=== PATIENT | female | born 1950 | race Hispanic/Latino ===

== ENCOUNTER 2017-06-18 21:36 | Inpatient (IN) | payer MEDICARE ==
[~2017-06-18] VITALS: Ht 154.9 cm; Wt 94.3 kg
[~2017-06-18 21:36] MED LIST: CHOL100040 PO; FERS325 PO; FOLI1TAB85 PO; GLIM1TAB2 PO; LEVO250T2 PO; LINE600T PO
[2017-06-18] MEDS ORDERED: CEFTRIAXONE SODIUM 1 GM ONE (21:48)
[2017-06-18] MEDS ORDERED: SODIUM CHLORIDE 0.9% 1000ML 3,000 ML IV ONE (21:53)
[2017-06-18] MEDS ORDERED: ACETAMINOPHEN 325 MG TAB ONE (22:00)
[2017-06-18] MEDS ORDERED: ONDANSETRON HCL 4 MG/2 ML VIAL ONE (22:00)
[2017-06-18] MEDS ORDERED: KETOROLAC TROMETHAMINE 15MG/ML ONE (22:00)
[2017-06-18 22:27] LABS: APPEARANCE,URINE Cloudy (CLEAR); BILIRUBIN,URINE Negative (NEGATIVE); COLOR,URINE Yellow (YELLOW); GLUCOSE, URINE (UA) 500 mg/dL (NEGATIVE); KETONES,URINE Negative (NEGATIVE); LEUKOCYTE ESTERASE ,URINE Negative (NEGATIVE); NITRATE,URINE Negative (NEGATIVE); OCCULT BLOOD,URINE Moderate (NEGATIVE); PH,URINE 5.5 (5.0-8.0); PROTEIN,URINE >=1000 (NEGATIVE); UROBILINOGEN,URINE 0.2 mg/dL (0.2-1.0)
[2017-06-18 22:30] LABS: BASOPHILS % (AUTO) 0.8 % (0.0-5.0); EOSINOPHILS % (AUTO) 0.4 % (0.0-8.0); HEMATOCRIT 24.2 % (36-48); LYMPHOCYTES % (AUTO) 4.3 % (21.0-51.0); MEAN CORPUSCULAR HEMOGLOBIN 26.3 pg (27.0-33.0); MEAN CORPUSCULAR HGB CONC 31.7 g/dL (32.0-36.0); MONOCYTES % (AUTO) 5.8 % (3.0-13.0); NEUTROPHILS % (AUTO) 88.7 % (40.0-77.0); PLATELET COUNT (AUTO) 210 K/uL (130-400); RED BLOOD CELL COUNT(AUTO) 2.92 MIL/uL (4.00-5.50); RED CELL DISTRIBUTION WIDTH 19.8 % (11.0-15.5); WHITE BLOOD COUNT (AUTO) 25.5 K/uL (4.8-10.8)
[2017-06-18] MEDS ORDERED: AZITHROMYCIN 500MG+NS 250ML 250 ML IV ONE (22:31)
[2017-06-18 22:33] LABS: CARBON DIOXIDE 17 mmol/L (21-32); CHLORIDE 109 mmol/L (101-111); CREATININE 3.6 mg/dL (0.5-1.5); GLOMERULAR FILTR. RATE CALC 13 mL/min (>60); GLUCOSE,RANDOM 193 mg/dL (70-105); INR 0.98 (0.85-1.15); PARTIAL THROMBOPLASTIN TIME 26.5 SEC (26.3-35.5); POTASSIUM 4.1 mmol/L (3.5-5.1); PROTHROMBIN TIME 10.3 SEC (9.6-11.6); SODIUM SERUM 142 mmol/L (136-145); UREA NITROGEN, BLOOD 54 mg/dL (7-18)
[2017-06-18 22:37] LABS: BACTERIA,URINE Moderate /HPF (None Seen); MUCUS,URINE Many LPF (None Seen); RENAL EPITHELIAL CELLS,URINE Few /LPF (None Seen); SQUAMOUS EPITHELIAL CELL,UR Moderate /LPF (0-2)
[2017-06-18 22:45] LABS: ALANINE AMINOTRANSFERASE 20 U/L (12-78); ALBUMIN 2.6 g/dL (3.5-5.0); ASPARTATE AMINOTRANSFERASE 26 U/L (10-37); BILIRUBIN,TOTAL 0.3 mg/dL (0.2-1.0); CREATINE KINASE MB 1.8 ng/mL (0.5-3.6); CREATINE KINASE, TOTAL 159 U/L (21-232); MYOGLOBIN 177 ng/mL (10-92); TOTAL PROTEIN, SERUM 6.5 g/dL (6.0-8.3); TROPONIN I < 0.04 ng/mL (0.00-0.06)
[2017-06-19] VITALS (7 sets, daily range): BP systolic 133–147; BP diastolic 56–75
[2017-06-19] MEDS ORDERED: SODIUM CHLORIDE 0.9% 1000ML 1,000 ML IV SCH (01:22)
[2017-06-19] MEDS ORDERED: HYDRALAZINE HCL 20 MG/ML VIAL IV PRN (01:30)
[2017-06-19] MEDS ORDERED: DiphenhydrAMINE HCL 50 MG/ML VIAL IV PRN (01:30)
[2017-06-19] MEDS ORDERED: GUAIFENESIN-DM 200/20 MG 10 ML PO PRN (01:30)
[2017-06-19] MEDS ORDERED: ONDANSETRON HCL 4 MG/2 ML VIAL IV PRN (01:30)
[2017-06-19] MEDS ORDERED: CEFTRIAXONE 1GM/D5W 50ML 50 ML IV SCH ×2 (01:30→21:00)
[2017-06-19] MEDS ORDERED: GLUCAGON 1MG KIT 1 MG ML IM PRN (01:30)
[2017-06-19] MEDS ORDERED: LACTULOSE 20 GM/30 ML UDCUP PO PRN (01:30)
[2017-06-19] MEDS ORDERED: ACETAMINOPHEN 325 MG TAB PO PRN (01:30)
[2017-06-19] MEDS ORDERED: DEXTROSE 50%-WATER 50 ML DISP.SYRIN IV PRN (01:30)
[2017-06-19] MEDS ORDERED: NITROGLYCERIN 0.4 MG SL TAB SL PRN (01:30)
[2017-06-19] MEDS ORDERED: AZITHROMYCIN 500MG+NS 250ML 250 ML IV SCH (02:00)
[2017-06-19] MEDS: IPRATROPIUM/ALBUTEROL SULFATE 3 ML SOLUTION IH SCH ×6 (03:15→23:25)
[2017-06-19] MEDS: INSULIN HUMULIN R 100 UNIT/ML 3ML SQ SCH ×5 (05:53→20:53)
[2017-06-19 06:56] LABS: HEMATOCRIT 22.6 % (36-48); MEAN CORPUSCULAR HEMOGLOBIN 26.9 pg (27.0-33.0); MEAN CORPUSCULAR HGB CONC 31.7 g/dL (32.0-36.0); PLATELET COUNT (AUTO) 177 K/uL (130-400); RED BLOOD CELL COUNT(AUTO) 2.66 MIL/uL (4.00-5.50); RED CELL DISTRIBUTION WIDTH 20.3 % (11.0-15.5); WHITE BLOOD COUNT (AUTO) 29.5 K/uL (4.8-10.8)
[2017-06-19 07:17] LABS: CREATININE 3.7 mg/dL (0.5-1.5); POTASSIUM 3.9 mmol/L (3.5-5.1)
[2017-06-19 07:22] LABS: HEMOGLOBIN A1C 5.3 % (4.0-6.0)
[2017-06-19 07:26] LABS: BASOPHILS % (MANUAL) 1 % (0-2); LYMPHOCYTES % (MANUAL) 4 % (22-44); MAN.DIFF COMMENT-IMPRESSION MANUAL DIFFERENTIAL; MONOCYTES % (MANUAL) 2 % (2-9); PLATELET MORPHOLOGY COMMENT ADEQUATE; SEGMENTED NEUTROPHILS % 93 % (40-70)
[2017-06-19 07:40] LABS: B-TYPE NATRIURETIC PEPTIDE 917 pg/mL (0-100)
[2017-06-19] MEDS: FAMOTIDINE 20MG TAB 20 MG TAB PO SCH ×2 (07:53→20:37)
[2017-06-19] MEDS ORDERED: CEFTRIAXONE SODIUM 1 GM IVP SCH (11:15)
[2017-06-19] MEDS: CEFTRIAXONE SODIUM 1 GM IVP SCH (20:38)
[2017-06-19] MEDS: AZITHROMYCIN 500MG+NS 250ML 250 ML IV SCH (23:31)
[2017-06-20] MEDS: IPRATROPIUM/ALBUTEROL SULFATE 3 ML SOLUTION IH SCH ×6 (01:21→22:38)
[2017-06-20 04:24] LABS: BASOPHILS % (AUTO) 0.7 % (0.0-5.0); EOSINOPHILS % (AUTO) 1.5 % (0.0-8.0); LYMPHOCYTES % (AUTO) 8.9 % (21.0-51.0); MEAN CORPUSCULAR HEMOGLOBIN 26.9 pg (27.0-33.0); MEAN CORPUSCULAR HGB CONC 32.2 g/dL (32.0-36.0); MEAN CORPUSCULAR VOLUME 83.6 fL (79-99); MONOCYTES % (AUTO) 10.3 % (3.0-13.0); NEUTROPHILS % (AUTO) 78.6 % (40.0-77.0); PLATELET COUNT (AUTO) 149 K/uL (130-400); RED BLOOD CELL COUNT(AUTO) 2.33 MIL/uL (4.00-5.50); RED CELL DISTRIBUTION WIDTH 20.3 % (11.0-15.5); WHITE BLOOD COUNT (AUTO) 16.4 K/uL (4.8-10.8)
[2017-06-20 04:29] LABS: HEMATOCRIT 19.4 % (36-48)
[2017-06-20 04:34] LABS: CREATININE 3.9 mg/dL (0.5-1.5); POTASSIUM 3.4 mmol/L (3.5-5.1)
[2017-06-20 04:36] VITALS: BP 139/58
[2017-06-20 05:27] LABS: B-TYPE NATRIURETIC PEPTIDE 364 pg/mL (0-100)
[2017-06-20] MEDS: INSULIN HUMULIN R 100 UNIT/ML 3ML SQ SCH ×4 (06:26→20:41)
[2017-06-20 07:21] VITALS: BP 152/60
[2017-06-20] MEDS: FAMOTIDINE 20MG TAB 20 MG TAB PO SCH ×3 (09:00→20:31)
[2017-06-20 11:05] VITALS: BP 136/59
[2017-06-20] MEDS ORDERED: SODIUM CHLORIDE 0.9% 250 ML IV ONE (14:10)
[2017-06-20] MEDS: EPOETIN ALFA 10,000 UNIT/ML VIAL SQ SCH (14:47)
[2017-06-20 16:08] VITALS: BP 134/87
[2017-06-20] MEDS: FUROSEMIDE 10 MG/ML 4ML VIAL IV SCH (17:25)
[2017-06-20 20:15] VITALS: BP 156/68
[2017-06-20] MEDS ORDERED: WATER FOR INJECTION,STERILE 20 ML VIAL ONE (20:27)
[2017-06-20] MEDS: CEFTRIAXONE SODIUM 1 GM IVP SCH (20:31)
[2017-06-20] MEDS: AZITHROMYCIN 500MG+NS 250ML 250 ML IV SCH (21:40)
[2017-06-20 23:34] VITALS: BP 149/55
[2017-06-21] MEDS: ACETAMINOPHEN 325 MG TAB PO PRN ×2 (02:08→20:59)
[2017-06-21] MEDS: IPRATROPIUM/ALBUTEROL SULFATE 3 ML SOLUTION IH SCH ×6 (02:48→23:23)
[2017-06-21 04:00] VITALS: BP 135/47
[2017-06-21 04:29] LABS: BASOPHILS % (AUTO) 0.9 % (0.0-5.0); EOSINOPHILS % (AUTO) 3.3 % (0.0-8.0); LYMPHOCYTES % (AUTO) 14.1 % (21.0-51.0); MEAN CORPUSCULAR HEMOGLOBIN 27.6 pg (27.0-33.0); MEAN CORPUSCULAR HGB CONC 33.2 g/dL (32.0-36.0); MEAN CORPUSCULAR VOLUME 83.1 fL (79-99); NEUTROPHILS % (AUTO) 70.7 % (40.0-77.0); PLATELET COUNT (AUTO) 128 K/uL (130-400); RED BLOOD CELL COUNT(AUTO) 2.45 MIL/uL (4.00-5.50); RED CELL DISTRIBUTION WIDTH 19.5 % (11.0-15.5); WHITE BLOOD COUNT (AUTO) 11.8 K/uL (4.8-10.8)
[2017-06-21 04:34] LABS: CREATININE 4.2 mg/dL (0.5-1.5); POTASSIUM 3.5 mmol/L (3.5-5.1)
[2017-06-21 04:40] LABS: HEMATOCRIT 20.4 % (36-48)
[2017-06-21 04:51] LABS: B-TYPE NATRIURETIC PEPTIDE 349 pg/mL (0-100)
[2017-06-21] MEDS: INSULIN HUMULIN R 100 UNIT/ML 3ML SQ SCH ×4 (05:47→20:57)
[2017-06-21] MEDS ORDERED: SODIUM CHLORIDE 0.9% 250 ML IV ONE (05:59)
[2017-06-21 07:19] VITALS: BP 143/64
[2017-06-21] MEDS ORDERED: FUROSEMIDE 10 MG/ML 2ML VIAL IV ONE (07:45)
[2017-06-21] MEDS: FUROSEMIDE 10 MG/ML 4ML VIAL IV SCH ×2 (09:48→17:00)
[2017-06-21] MEDS: FAMOTIDINE 20MG TAB 20 MG TAB PO SCH ×2 (09:48→20:25)
[2017-06-21] MEDS: IRON SUCROSE COMPLEX 100 MG in SODIUM CHLORIDE 0.9% 50 ML IV SCH (09:48)
[2017-06-21 11:08] VITALS: BP 140/65
[2017-06-21] MEDS ORDERED: COMPOUND IV MISC 1 EACH IVSOLN MISC PRN (11:30)
[2017-06-21] MEDS: EPOETIN ALFA 10,000 UNIT/ML VIAL SQ SCH (12:30)
[2017-06-21 16:00] VITALS: BP 183/80
[2017-06-21] MEDS ORDERED: AMLO5TAB2 PO (17:29)
[2017-06-21 19:14] VITALS: BP 163/86
[2017-06-21] MEDS ORDERED: WATER FOR INJECTION,STERILE 20 ML VIAL ONE (20:00)
[2017-06-21] MEDS: CEFTRIAXONE SODIUM 1 GM IVP SCH (20:23)
[2017-06-21] MEDS: CARVEDILOL 6.25 MG TABLET PO SCH (20:24)
[2017-06-21] MEDS: AZITHROMYCIN 500MG+NS 250ML 250 ML IV SCH (22:04)
[2017-06-21 23:44] VITALS: BP 134/62
[2017-06-22] MEDS: IPRATROPIUM/ALBUTEROL SULFATE 3 ML SOLUTION IH SCH ×6 (02:59→22:04)
[2017-06-22 03:42] VITALS: BP 157/76
[2017-06-22 04:40] LABS: HEMATOCRIT 28.1 % (36-48); MEAN CORPUSCULAR HEMOGLOBIN 27.2 pg (27.0-33.0); MEAN CORPUSCULAR HGB CONC 33.2 g/dL (32.0-36.0); MEAN CORPUSCULAR VOLUME 82.1 fL (79-99); PLATELET COUNT (AUTO) 170 K/uL (130-400); RED BLOOD CELL COUNT(AUTO) 3.43 MIL/uL (4.00-5.50); RED CELL DISTRIBUTION WIDTH 18.8 % (11.0-15.5); WHITE BLOOD COUNT (AUTO) 14.2 K/uL (4.8-10.8)
[2017-06-22 05:05] LABS: CREATININE 4.2 mg/dL (0.5-1.5)
[2017-06-22] MEDS: INSULIN HUMULIN R 100 UNIT/ML 3ML SQ SCH ×4 (05:55→20:41)
[2017-06-22] MEDS: GLIMEPIRIDE 2 MG TABLET PO SCH (06:38)
[2017-06-22 07:00] VITALS: BP 157/72
[2017-06-22] MEDS: AMLODIPINE BESYLATE 5 MG TAB PO SCH (08:17)
[2017-06-22] MEDS: CARVEDILOL 6.25 MG TABLET PO SCH ×2 (08:17→20:40)
[2017-06-22] MEDS: IRON SUCROSE COMPLEX 100 MG in SODIUM CHLORIDE 0.9% 50 ML IV SCH (08:17)
[2017-06-22] MEDS: FOLIC ACID/VITAMIN B COMP W-C 1 MG CAPSULE PO SCH (08:17)
[2017-06-22] MEDS: FAMOTIDINE 20MG TAB 20 MG TAB PO SCH ×2 (08:17→20:40)
[2017-06-22] MEDS: FUROSEMIDE 10 MG/ML 4ML VIAL IV SCH (08:17)
[2017-06-22] MEDS: Cholecalciferol (Vitamin D3) 1,000 UNIT PO SCH (08:19)
[2017-06-22 11:30] VITALS: BP 150/70
[2017-06-22] MEDS: EPOETIN ALFA 10,000 UNIT/ML VIAL SQ SCH (11:58)
[2017-06-22 16:15] VITALS: BP 147/76
[2017-06-22 19:02] VITALS: BP 156/82
[2017-06-22] MEDS ORDERED: WATER FOR INJECTION,STERILE 20 ML VIAL ONE (20:09)
[2017-06-22] MEDS: CEFTRIAXONE SODIUM 1 GM IVP SCH (20:39)
[2017-06-22] MEDS: FUROSEMIDE 80 MG TABLET PO SCH (20:41)
[2017-06-22] MEDS: AZITHROMYCIN 500MG+NS 250ML 250 ML IV SCH (22:12)
[2017-06-22 23:04] VITALS: BP 150/73
[2017-06-23] MEDS: IPRATROPIUM/ALBUTEROL SULFATE 3 ML SOLUTION IH SCH ×6 (02:13→21:54)
[2017-06-23 03:12] VITALS: BP 120/55
[2017-06-23 04:29] LABS: MEAN CORPUSCULAR HEMOGLOBIN 28.9 pg (27.0-33.0); MEAN CORPUSCULAR HGB CONC 34.7 g/dL (32.0-36.0); MEAN CORPUSCULAR VOLUME 83.2 fL (79-99); PLATELET COUNT (AUTO) 156 K/uL (130-400); RED BLOOD CELL COUNT(AUTO) 3.12 MIL/uL (4.00-5.50); RED CELL DISTRIBUTION WIDTH 18.5 % (11.0-15.5)
[2017-06-23 04:37] LABS: CREATININE 4.3 mg/dL (0.5-1.5); POTASSIUM 3.5 mmol/L (3.5-5.1)
[2017-06-23] MEDS: INSULIN HUMULIN R 100 UNIT/ML 3ML SQ SCH ×4 (06:25→21:00)
[2017-06-23] MEDS: GLIMEPIRIDE 2 MG TABLET PO SCH ×2 (06:46→07:30)
[2017-06-23] MEDS: FOLIC ACID/VITAMIN B COMP W-C 1 MG CAPSULE PO SCH (07:20)
[2017-06-23] MEDS: FUROSEMIDE 80 MG TABLET PO SCH ×2 (07:21→21:12)
[2017-06-23] MEDS: FAMOTIDINE 20MG TAB 20 MG TAB PO SCH ×2 (07:21→21:12)
[2017-06-23] MEDS: CARVEDILOL 6.25 MG TABLET PO SCH ×2 (07:21→21:12)
[2017-06-23] MEDS: AMLODIPINE BESYLATE 5 MG TAB PO SCH (07:21)
[2017-06-23] MEDS: IRON SUCROSE COMPLEX 100 MG in SODIUM CHLORIDE 0.9% 50 ML IV SCH (07:21)
[2017-06-23] MEDS: Cholecalciferol (Vitamin D3) 1,000 UNIT PO SCH (07:21)
[2017-06-23] MEDS: EPOETIN ALFA 10,000 UNIT/ML VIAL SQ SCH (07:27)
[2017-06-23 07:42] VITALS: BP 148/71
[2017-06-23 11:09] VITALS: BP 141/69
[2017-06-23 16:00] VITALS: BP 143/82
[2017-06-23] MEDS ORDERED: WATER FOR INJECTION,STERILE 20 ML VIAL ONE (20:02)
[2017-06-23 20:12] VITALS: BP 175/74
[2017-06-23] MEDS ORDERED: CEFEPIME 1GM+NS 50ML 50 ML IV SCH (21:00)
[2017-06-23] MEDS: CEFEPIME HCL 1 GM VIAL IVP SCH (21:10)
[2017-06-23] MEDS: AZITHROMYCIN 500MG+NS 250ML 250 ML IV SCH (21:56)
[2017-06-23 23:28] VITALS: BP 138/58
[2017-06-24] MEDS: IPRATROPIUM/ALBUTEROL SULFATE 3 ML SOLUTION IH SCH ×6 (02:21→21:37)
[2017-06-24 03:11] VITALS: BP 133/56
[2017-06-24 04:13] LABS: HEMATOCRIT 27.1 % (36-48); MEAN CORPUSCULAR HEMOGLOBIN 28.4 pg (27.0-33.0); MEAN CORPUSCULAR HGB CONC 34.3 g/dL (32.0-36.0); MEAN CORPUSCULAR VOLUME 82.8 fL (79-99); NUCLEATED RED BLOOD CELLS 0.1 % (0.0-0.19); PLATELET COUNT (AUTO) 186 K/uL (130-400); RED BLOOD CELL COUNT(AUTO) 3.27 MIL/uL (4.00-5.50); RED CELL DISTRIBUTION WIDTH 18.1 % (11.0-15.5); WHITE BLOOD COUNT (AUTO) 10.6 K/uL (4.8-10.8)
[2017-06-24 04:34] LABS: CREATININE 4.4 mg/dL (0.5-1.5); POTASSIUM 3.4 mmol/L (3.5-5.1)
[2017-06-24] MEDS: INSULIN HUMULIN R 100 UNIT/ML 3ML SQ SCH ×4 (06:59→21:05)
[2017-06-24] MEDS: GLIMEPIRIDE 2 MG TABLET PO SCH (06:59)
[2017-06-24 07:37] VITALS: BP 148/67
[2017-06-24] MEDS: Cholecalciferol (Vitamin D3) 1,000 UNIT PO SCH (09:00)
[2017-06-24] MEDS: FOLIC ACID/VITAMIN B COMP W-C 1 MG CAPSULE PO SCH (09:02)
[2017-06-24] MEDS: AMLODIPINE BESYLATE 5 MG TAB PO SCH (09:02)
[2017-06-24] MEDS: FAMOTIDINE 20MG TAB 20 MG TAB PO SCH ×2 (09:03→21:12)
[2017-06-24] MEDS: FUROSEMIDE 80 MG TABLET PO SCH ×2 (09:03→21:12)
[2017-06-24] MEDS: CARVEDILOL 6.25 MG TABLET PO SCH ×2 (09:03→21:12)
[2017-06-24] MEDS: IRON SUCROSE COMPLEX 100 MG in SODIUM CHLORIDE 0.9% 50 ML IV SCH (10:07)
[2017-06-24 11:30] VITALS: BP 130/60
[2017-06-24] MEDS: EPOETIN ALFA 10,000 UNIT/ML VIAL SQ SCH (12:39)
[2017-06-24] MEDS ORDERED: POTASSIUM CHLORIDE 20 MEQ ERTAB PO SCH (15:15)
[2017-06-24 16:15] VITALS: BP 133/53
[2017-06-24 19:29] VITALS: BP 156/68
[2017-06-24] MEDS ORDERED: WATER FOR INJECTION,STERILE 5 ML VIAL ONE (20:54)
[2017-06-24] MEDS: CEFEPIME HCL 1 GM VIAL IVP SCH (21:11)
[2017-06-24] MEDS: AZITHROMYCIN 500MG+NS 250ML 250 ML IV SCH (21:12)
[2017-06-24] MEDS ORDERED: SODIUM CHLORIDE 0.9% 500ML 500 ML IV ONE (21:23)
[2017-06-24 23:27] VITALS: BP 136/59
[2017-06-25] MEDS: ACETAMINOPHEN 325 MG TAB PO PRN (00:50)
[2017-06-25] MEDS: IPRATROPIUM/ALBUTEROL SULFATE 3 ML SOLUTION IH SCH ×6 (01:53→21:43)
[2017-06-25 03:48] LABS: HEMATOCRIT 27.3 % (36-48); MEAN CORPUSCULAR HEMOGLOBIN 28.3 pg (27.0-33.0); MEAN CORPUSCULAR HGB CONC 33.8 g/dL (32.0-36.0); MEAN CORPUSCULAR VOLUME 83.5 fL (79-99); PLATELET COUNT (AUTO) 190 K/uL (130-400); RED BLOOD CELL COUNT(AUTO) 3.27 MIL/uL (4.00-5.50); RED CELL DISTRIBUTION WIDTH 18.6 % (11.0-15.5); WHITE BLOOD COUNT (AUTO) 10.9 K/uL (4.8-10.8)
[2017-06-25 03:57] VITALS: BP 157/63
[2017-06-25 03:58] LABS: CREATININE 4.6 mg/dL (0.5-1.5); POTASSIUM 3.4 mmol/L (3.5-5.1)
[2017-06-25 04:09] LABS: EOSINOPHILS % (MANUAL) 4 % (1-6); LYMPHOCYTES % (MANUAL) 24 % (22-44); MAN.DIFF COMMENT-IMPRESSION MANUAL DIFFERENTIAL; MONOCYTES % (MANUAL) 4 % (2-9); SEGMENTED NEUTROPHILS % 68 % (40-70)
[2017-06-25 04:10] LABS: PLATELET MORPHOLOGY COMMENT ADEQUATE
[2017-06-25] MEDS: INSULIN HUMULIN R 100 UNIT/ML 3ML SQ SCH ×4 (06:28→22:05)
[2017-06-25] MEDS: GLIMEPIRIDE 2 MG TABLET PO SCH (06:50)
[2017-06-25 07:00] VITALS: BP 145/64
[2017-06-25] MEDS ORDERED: POTASSIUM CHLORIDE 20 MEQ ERTAB PO SCH (08:00)
[2017-06-25] MEDS: FOLIC ACID/VITAMIN B COMP W-C 1 MG CAPSULE PO SCH (08:54)
[2017-06-25] MEDS: FUROSEMIDE 80 MG TABLET PO SCH ×2 (08:54→22:27)
[2017-06-25] MEDS: AMLODIPINE BESYLATE 5 MG TAB PO SCH (08:54)
[2017-06-25] MEDS: CARVEDILOL 6.25 MG TABLET PO SCH ×2 (08:55→22:28)
[2017-06-25] MEDS: FAMOTIDINE 20MG TAB 20 MG TAB PO SCH ×2 (08:55→22:27)
[2017-06-25] MEDS: Cholecalciferol (Vitamin D3) 1,000 UNIT PO SCH (08:55)
[2017-06-25] MEDS: IRON SUCROSE COMPLEX 100 MG in SODIUM CHLORIDE 0.9% 50 ML IV SCH (09:12)
[2017-06-25 11:00] VITALS: BP 155/65
[2017-06-25] MEDS: EPOETIN ALFA 10,000 UNIT/ML VIAL SQ SCH (12:18)
[2017-06-25 16:00] VITALS: BP 144/68
[2017-06-25 19:42] VITALS: BP 154/79
[2017-06-25] MEDS ORDERED: WATER FOR INJECTION,STERILE 5 ML VIAL ONE (21:50)
[2017-06-25] MEDS: CEFEPIME HCL 1 GM VIAL IVP SCH (22:27)
[2017-06-25] MEDS: AZITHROMYCIN 500MG+NS 250ML 250 ML IV SCH (22:28)
[2017-06-25 23:43] VITALS: BP 145/73
[2017-06-26] MEDS: IPRATROPIUM/ALBUTEROL SULFATE 3 ML SOLUTION IH SCH ×3 (02:53→11:59)
[2017-06-26 03:44] VITALS: BP 140/70
[2017-06-26 05:09] LABS: HEMATOCRIT 28.8 % (36-48); MEAN CORPUSCULAR HEMOGLOBIN 27.6 pg (27.0-33.0); MEAN CORPUSCULAR HGB CONC 33.2 g/dL (32.0-36.0); NUCLEATED RED BLOOD CELLS 0.2 % (0.0-0.19); PLATELET COUNT (AUTO) 213 K/uL (130-400); RED BLOOD CELL COUNT(AUTO) 3.47 MIL/uL (4.00-5.50); RED CELL DISTRIBUTION WIDTH 18.7 % (11.0-15.5); WHITE BLOOD COUNT (AUTO) 12.1 K/uL (4.8-10.8)
[2017-06-26 05:29] LABS: CREATININE 4.5 mg/dL (0.5-1.5); POTASSIUM 3.3 mmol/L (3.5-5.1)
[2017-06-26 05:50] LABS: EOSINOPHILS % (MANUAL) 5 % (1-6); LYMPHOCYTES % (MANUAL) 18 % (22-44); MAN.DIFF COMMENT-IMPRESSION MANUAL DIFFERENTIAL; MONOCYTES % (MANUAL) 4 % (2-9); PLATELET MORPHOLOGY COMMENT ADEQUATE; SEGMENTED NEUTROPHILS % 73 % (40-70)
[2017-06-26] MEDS: INSULIN HUMULIN R 100 UNIT/ML 3ML SQ SCH (05:57)
[2017-06-26] MEDS: GLIMEPIRIDE 2 MG TABLET PO SCH ×2 (06:30→06:32)
[2017-06-26 07:00] VITALS: BP 144/58
[2017-06-26] MEDS ORDERED: AMOX-426 PO (07:42)
[2017-06-26] MEDS ORDERED: FURO80TA3 PO (07:42)
[2017-06-26] MEDS ORDERED: CARV6.2579 PO (07:42)
[2017-06-26 10:34] VITALS: BP 144/58
[2017-06-26] MEDS: FAMOTIDINE 20MG TAB 20 MG TAB PO SCH (10:34)
[2017-06-26] MEDS: CARVEDILOL 6.25 MG TABLET PO SCH (10:34)
[2017-06-26] MEDS: IRON SUCROSE COMPLEX 100 MG in SODIUM CHLORIDE 0.9% 50 ML IV SCH (10:34)
[2017-06-26] MEDS: AMLODIPINE BESYLATE 5 MG TAB PO SCH (10:34)
[2017-06-26] MEDS: FUROSEMIDE 80 MG TABLET PO SCH (10:34)
[2017-06-26] MEDS: FOLIC ACID/VITAMIN B COMP W-C 1 MG CAPSULE PO SCH (10:34)
== END 2017-06-26 14:15 | disposition home or self-care (01) | DRG 871 ==
LOC: EDH 21:36 → EDHIP 06-19 01:00 → 2DH 06-19 01:36
PROVIDERS: ADMIT Family Medicine; ATTEND Family Medicine
PROC: 30233N1 Transfusion of Nonautologous Red Blood Cells into Peripheral Vein, Percutaneous Approach (ICD-10-PCS; principal; 2017-06-26)
DX: A41.9 Sepsis, unspecified organism (principal); J18.9 Pneumonia, unspecified organism; J81.0 Acute pulmonary edema; N17.9 Acute kidney failure, unspecified; N39.0 Urinary tract infection, site not specified; E11.22 Type 2 diabetes mellitus with diabetic chronic kidney disease; N18.9 Chronic kidney disease, unspecified; D63.1 Anemia in chronic kidney disease; I89.0 Lymphedema, not elsewhere classified; I12.9 Hypertensive chronic kidney disease with stage 1 through stage 4 chronic kidney disease, or unspecified chronic kidney disease; E11.21 Type 2 diabetes mellitus with diabetic nephropathy; E11.51 Type 2 diabetes mellitus with diabetic peripheral angiopathy without gangrene; E87.70 Fluid overload, unspecified; B96.20 Unspecified Escherichia coli [E. coli] as the cause of diseases classified elsewhere; R09.89 Other specified symptoms and signs involving the circulatory and respiratory systems; M14.679 Charcot's joint, unspecified ankle and foot; Z88.8 Allergy status to other drugs, medicaments and biological substances; Z90.710 Acquired absence of both cervix and uterus; Z90.49 Acquired absence of other specified parts of digestive tract; Z99.2 Dependence on renal dialysis; Z83.3 Family history of diabetes mellitus; Z82.49 Family history of ischemic heart disease and other diseases of the circulatory system
CPT/HCPCS: 36415; 71010; 71020; 71250; 80048; 80053; 81001; 82550; 82553; 82948; 83036; 83605; 83874; 83880; 84484; 85025; 85027; 85610; 85730; 86850; 86900; 86901; 86922; 87040; 87088; 87186; 87804; 93005; 93306; 94640; 94664; 99291; A4218; J0456; J0692; J0696; J0885; J1756; J1815; J1885; J1940; J2405; J7030; J7040; P9016

== ENCOUNTER 2017-06-30 12:32 | Inpatient (IN) | payer MEDICARE, OTHER ==
[~2017-06-30] VITALS: Ht 162.6 cm; Wt 87.1 kg
[~2017-06-30 12:32] MED LIST changes: +AMLO5TAB2 PO; +AMOX-426 PO; +CARV6.2579 PO; +FURO80TA3 PO; -LEVO250T2 PO; -LINE600T PO
[2017-06-30 13:51] LABS: BASOPHILS % (AUTO) 0.8 % (0.0-5.0); EOSINOPHILS % (AUTO) 3.4 % (0.0-8.0); HEMATOCRIT 34.2 % (36-48); LYMPHOCYTES % (AUTO) 8.8 % (21.0-51.0); MEAN CORPUSCULAR HGB CONC 32.3 g/dL (32.0-36.0); MEAN CORPUSCULAR VOLUME 83.7 fL (79-99); MONOCYTES % (AUTO) 8.7 % (3.0-13.0); NEUTROPHILS % (AUTO) 78.3 % (40.0-77.0); PLATELET COUNT (AUTO) 222 K/uL (130-400); RED BLOOD CELL COUNT(AUTO) 4.09 MIL/uL (4.00-5.50); RED CELL DISTRIBUTION WIDTH 18.3 % (11.0-15.5); WHITE BLOOD COUNT (AUTO) 13.9 K/uL (4.8-10.8)
[2017-06-30 14:00] LABS: CREATININE 4.5 mg/dL (0.5-1.5); POTASSIUM 3.4 mmol/L (3.5-5.1)
[2017-06-30 14:06] LABS: ALBUMIN 2.3 g/dL (3.5-5.0); BILIRUBIN,TOTAL 0.3 mg/dL (0.2-1.0); TOTAL PROTEIN, SERUM 7.4 g/dL (6.0-8.3)
[2017-06-30 14:31] LABS: INR 1.02 (0.85-1.15); PARTIAL THROMBOPLASTIN TIME 30.3 SEC (26.3-35.5); PROTHROMBIN TIME 10.7 SEC (9.6-11.6)
[2017-06-30] MEDS ORDERED: HEPARIN SODIUM 1000UNIT/ML 10ML VIAL ONE (15:23)
[2017-06-30 17:15] VITALS: BP 146/71
[2017-06-30 17:45] VITALS: BP 158/66
[2017-06-30] MEDS ORDERED: ONDANSETRON HCL 4 MG/2 ML VIAL IVP PRN (17:45)
[2017-06-30] MEDS ORDERED: KETO5DRO39 OU (18:03)
[2017-06-30] MEDS ORDERED: DOXY100C2 PO (18:03)
[2017-06-30 18:10] LABS: HEMATOCRIT 31.6 % (36-48)
[2017-06-30 18:22] LABS: HEMOGLOBIN A1C 5.6 % (4.0-6.0)
[2017-06-30 18:26] LABS: ALBUMIN 2.1 g/dL (3.5-5.0); CREATININE 4.5 mg/dL (0.5-1.5)
[2017-06-30 19:00] VITALS: BP 153/69
[2017-06-30] MEDS ORDERED: 0.9% SODIUM CHLORIDE 250 ML IV BAG IV PRN (19:15)
[2017-06-30] MEDS ORDERED: ALBUMIN (HUMAN) 25% 100 ML IV PRN (19:15)
[2017-06-30] MEDS ORDERED: SODIUM CHLORIDE 0.9% 1000ML 1,000 ML IV PRN (19:15)
[2017-06-30] MEDS ORDERED: HEPARIN SODIUM 5000UNIT/ML 1ML VIAL IJ PRN (19:15)
[2017-07-01] VITALS (8 sets, daily range): BP systolic 104–164; BP diastolic 52–78
[2017-07-01 05:12] LABS: HEMATOCRIT 32.9 % (36-48); MEAN CORPUSCULAR HEMOGLOBIN 27.8 pg (27.0-33.0); MEAN CORPUSCULAR HGB CONC 33.3 g/dL (32.0-36.0); MEAN CORPUSCULAR VOLUME 83.3 fL (79-99); PLATELET COUNT (AUTO) 211 K/uL (130-400); RED BLOOD CELL COUNT(AUTO) 3.95 MIL/uL (4.00-5.50)
[2017-07-01 05:23] LABS: PHOSPHORUS 4.1 mg/dL (2.5-4.9)
[2017-07-01 05:30] LABS: BAND NEUTROPHILS % (MANUAL) 5 % (0-2); EOSINOPHILS % (MANUAL) 4 % (1-6); LYMPHOCYTES % (MANUAL) 9 % (22-44); MAN.DIFF COMMENT-IMPRESSION MANUAL DIFFERENTIAL; MONOCYTES % (MANUAL) 10 % (2-9); PLATELET MORPHOLOGY COMMENT ADEQUATE; SEGMENTED NEUTROPHILS % 72 % (40-70)
[2017-07-01 05:51] LABS: POTASSIUM 2.9 mmol/L (3.5-5.1)
[2017-07-01] MEDS ORDERED: PANTOPRAZOLE 40 MG/VIAL IVP SCH (09:00)
[2017-07-01] MEDS: KETOROLAC TROMETHAMINE OPTH 0.5% 5ML DROPS OU SCH ×2 (15:57→21:00)
[2017-07-01] MEDS: INSULIN HUMULIN R 100 UNIT/ML 3ML SQ SCH (21:00)
[2017-07-01] MEDS: AMOXICILLIN/POTASSIUM CLAV 500-125 TABLET PO SCH (21:09)
[2017-07-01] MEDS: DOXYCYCLINE HYCLATE 100 MG TABLET PO SCH (21:09)
[2017-07-01] MEDS: CARVEDILOL 6.25 MG TABLET PO SCH (21:09)
[2017-07-02 03:00] VITALS: BP 118/48
[2017-07-02 06:10] LABS: HEMATOCRIT 31.3 % (36-48); MEAN CORPUSCULAR HEMOGLOBIN 27.3 pg (27.0-33.0); MEAN CORPUSCULAR HGB CONC 32.7 g/dL (32.0-36.0); MEAN CORPUSCULAR VOLUME 83.4 fL (79-99); PLATELET COUNT (AUTO) 163 K/uL (130-400); RED BLOOD CELL COUNT(AUTO) 3.75 MIL/uL (4.00-5.50); RED CELL DISTRIBUTION WIDTH 17.9 % (11.0-15.5); WHITE BLOOD COUNT (AUTO) 11.5 K/uL (4.8-10.8)
[2017-07-02 06:26] LABS: CREATININE 3.1 mg/dL (0.5-1.5); POTASSIUM 3.1 mmol/L (3.5-5.1)
[2017-07-02 06:33] LABS: EOSINOPHILS % (MANUAL) 5 % (1-6); LYMPHOCYTES % (MANUAL) 27 % (22-44); MAN.DIFF COMMENT-IMPRESSION MANUAL DIFFERENTIAL; MONOCYTES % (MANUAL) 7 % (2-9); SEGMENTED NEUTROPHILS % 61 % (40-70)
[2017-07-02 06:34] LABS: PLATELET MORPHOLOGY COMMENT ADEQUATE
[2017-07-02] MEDS: INSULIN HUMULIN R 100 UNIT/ML 3ML SQ SCH ×4 (07:30→21:00)
[2017-07-02 08:00] VITALS: BP 137/61
[2017-07-02] MEDS: AMOXICILLIN/POTASSIUM CLAV 500-125 TABLET PO SCH ×2 (09:00→21:21)
[2017-07-02] MEDS: CARVEDILOL 6.25 MG TABLET PO SCH ×2 (09:00→21:22)
[2017-07-02 09:13] LABS: HEPATITIS Bs ANTIGEN SCREEN P Negative (Negative)
[2017-07-02] MEDS: VITAMIN B COMPLEX 1 CAPSULE PO SCH (10:48)
[2017-07-02] MEDS: KETOROLAC TROMETHAMINE OPTH 0.5% 5ML DROPS OU SCH ×3 (10:48→21:20)
[2017-07-02] MEDS: PANTOPRAZOLE SODIUM 40 MG TABLET.DR PO SCH (10:48)
[2017-07-02 12:00] VITALS: BP 160/63
[2017-07-02 16:00] VITALS: BP 120/56
[2017-07-02] MEDS: FERROUS SULFATE 325 MG TABLET.DR PO SCH (16:31)
[2017-07-02] MEDS: DOXYCYCLINE HYCLATE 100 MG TABLET PO SCH ×2 (16:31→21:21)
[2017-07-02 21:00] VITALS: BP 119/60
[2017-07-02 23:59] VITALS: BP 115/60
[2017-07-03] MEDS: ACETAMINOPHEN 325 MG TAB PO PRN ×2 (00:58→22:34)
[2017-07-03 03:27] VITALS: BP 120/58
[2017-07-03 05:35] LABS: HEMATOCRIT 31.5 % (36-48); MEAN CORPUSCULAR HEMOGLOBIN 27.3 pg (27.0-33.0); MEAN CORPUSCULAR HGB CONC 32.4 g/dL (32.0-36.0); MEAN CORPUSCULAR VOLUME 84.2 fL (79-99); PLATELET COUNT (AUTO) 156 K/uL (130-400); RED BLOOD CELL COUNT(AUTO) 3.74 MIL/uL (4.00-5.50); RED CELL DISTRIBUTION WIDTH 17.8 % (11.0-15.5); WHITE BLOOD COUNT (AUTO) 11.5 K/uL (4.8-10.8)
[2017-07-03 05:48] LABS: CREATININE 3.9 mg/dL (0.5-1.5); PHOSPHORUS 5.2 mg/dL (2.5-4.9); POTASSIUM 3.1 mmol/L (3.5-5.1)
[2017-07-03] MEDS: INSULIN HUMULIN R 100 UNIT/ML 3ML SQ SCH ×4 (07:30→20:25)
[2017-07-03 08:00] VITALS: BP 139/62
[2017-07-03] MEDS: FERROUS SULFATE 325 MG TABLET.DR PO SCH (08:00)
[2017-07-03] MEDS: DOXYCYCLINE HYCLATE 100 MG TABLET PO SCH (09:00)
[2017-07-03] MEDS: AMOXICILLIN/POTASSIUM CLAV 500-125 TABLET PO SCH (09:00)
[2017-07-03] MEDS: CARVEDILOL 6.25 MG TABLET PO SCH ×2 (09:14→20:23)
[2017-07-03] MEDS: PANTOPRAZOLE SODIUM 40 MG TABLET.DR PO SCH (09:14)
[2017-07-03] MEDS: VITAMIN B COMPLEX 1 CAPSULE PO SCH (09:15)
[2017-07-03] MEDS: KETOROLAC TROMETHAMINE OPTH 0.5% 5ML DROPS OU SCH ×3 (09:25→20:24)
[2017-07-03 12:00] VITALS: BP 165/75
[2017-07-03 15:52] VITALS: BP 145/67
[2017-07-03] MEDS ORDERED: RENAL DOSE IV SCH (17:15)
[2017-07-03] MEDS ORDERED: VANCOMYCIN PROTOCOL PER PHARMACY IV SCH (17:45)
[2017-07-03] MEDS ORDERED: COMPOUND IV REFRIGERATED 1 EACH IVSOLN MISC PRN (18:00)
[2017-07-03] MEDS: VANCOMYCIN 1.5 GM in N.S. 250 ML IV SCH (18:19)
[2017-07-03 19:00] VITALS: BP 142/64
[2017-07-03] MEDS: ZOSYN 3.375GM+NS 50ML 50 ML IV SCH (20:22)
[2017-07-04] VITALS (7 sets, daily range): BP systolic 113–167; BP diastolic 57–76
[2017-07-04] MEDS ORDERED: HYDROXYZINE HCL 25 MG TABLET ONE (00:09)
[2017-07-04] MEDS ORDERED: HYDROXYZINE HCL 25 MG TABLET PO PRN (00:15)
[2017-07-04] MEDS: INSULIN HUMULIN R 100 UNIT/ML 3ML SQ SCH ×4 (05:52→21:00)
[2017-07-04 05:56] LABS: HEMATOCRIT 30.7 % (36-48); MEAN CORPUSCULAR HEMOGLOBIN 27.6 pg (27.0-33.0); MEAN CORPUSCULAR HGB CONC 32.8 g/dL (32.0-36.0); MEAN CORPUSCULAR VOLUME 84.1 fL (79-99); PLATELET COUNT (AUTO) 147 K/uL (130-400); RED BLOOD CELL COUNT(AUTO) 3.65 MIL/uL (4.00-5.50); RED CELL DISTRIBUTION WIDTH 18.3 % (11.0-15.5); WHITE BLOOD COUNT (AUTO) 9.8 K/uL (4.8-10.8)
[2017-07-04 06:09] LABS: CREATININE 4.3 mg/dL (0.5-1.5); MAGNESIUM 1.6 mg/dL (1.80-2.40); POTASSIUM 3.1 mmol/L (3.5-5.1)
[2017-07-04] MEDS: TRAMADOL HCL 50 MG TABLET PO PRN (08:48)
[2017-07-04] MEDS: CARVEDILOL 6.25 MG TABLET PO SCH ×2 (10:49→21:16)
[2017-07-04] MEDS: VITAMIN B COMPLEX 1 CAPSULE PO SCH (10:49)
[2017-07-04] MEDS: FERROUS SULFATE 325 MG TABLET.DR PO SCH (10:50)
[2017-07-04] MEDS: ZOSYN 3.375GM+NS 50ML 50 ML IV SCH ×2 (10:50→21:15)
[2017-07-04] MEDS: KETOROLAC TROMETHAMINE OPTH 0.5% 5ML DROPS OU SCH ×3 (10:50→21:16)
[2017-07-04] MEDS: PANTOPRAZOLE SODIUM 40 MG TABLET.DR PO SCH (10:50)
[2017-07-04] MEDS ORDERED: NEOMY SULF/BACITRAC ZN/POLY OINT 30GM TUBE TP SCH (17:00)
[2017-07-04] MEDS: CALCIUM ACETATE 667 MG CAPSULE PO SCH (18:24)
[2017-07-04] MEDS: VANCOMYCIN 1.5 GM in N.S. 250 ML IV SCH (18:24)
[2017-07-05 04:00] VITALS: BP 136/61
[2017-07-05] MEDS: INSULIN HUMULIN R 100 UNIT/ML 3ML SQ SCH ×4 (05:54→21:00)
[2017-07-05 05:59] LABS: HEMATOCRIT 30.1 % (36-48); MEAN CORPUSCULAR HEMOGLOBIN 28.1 pg (27.0-33.0); MEAN CORPUSCULAR VOLUME 85.2 fL (79-99); PLATELET COUNT (AUTO) 126 K/uL (130-400); RED BLOOD CELL COUNT(AUTO) 3.54 MIL/uL (4.00-5.50); RED CELL DISTRIBUTION WIDTH 17.6 % (11.0-15.5); WHITE BLOOD COUNT (AUTO) 9.4 K/uL (4.8-10.8)
[2017-07-05 06:09] LABS: CREATININE 3.1 mg/dL (0.5-1.5); PHOSPHORUS 4.4 mg/dL (2.5-4.9); POTASSIUM 3.5 mmol/L (3.5-5.1)
[2017-07-05 06:10] LABS: BASOPHILS % (MANUAL) 2 % (0-2); EOSINOPHILS % (MANUAL) 6 % (1-6); LYMPHOCYTES % (MANUAL) 21 % (22-44); MAN.DIFF COMMENT-IMPRESSION MANUAL DIFFERENTIAL; MONOCYTES % (MANUAL) 5 % (2-9); PLATELET MORPHOLOGY COMMENT SLIGHTLY DECREASED; SEGMENTED NEUTROPHILS % 66 % (40-70)
[2017-07-05 07:06] VITALS: BP 155/61
[2017-07-05] MEDS: ZOSYN 3.375GM+NS 50ML 50 ML IV SCH ×2 (09:53→21:58)
[2017-07-05] MEDS: VITAMIN B COMPLEX 1 CAPSULE PO SCH (09:54)
[2017-07-05] MEDS: CALCIUM ACETATE 667 MG CAPSULE PO SCH ×3 (09:54→17:00)
[2017-07-05] MEDS: CARVEDILOL 6.25 MG TABLET PO SCH ×2 (09:55→21:59)
[2017-07-05] MEDS: KETOROLAC TROMETHAMINE OPTH 0.5% 5ML DROPS OU SCH ×3 (09:55→22:03)
[2017-07-05] MEDS: FERROUS SULFATE 325 MG TABLET.DR PO SCH (09:55)
[2017-07-05] MEDS: PANTOPRAZOLE SODIUM 40 MG TABLET.DR PO SCH (09:57)
[2017-07-05 11:00] VITALS: BP 156/62
[2017-07-05] MEDS: SODIUM CHLORIDE 0.9% 1000ML 1,000 ML IV SCH ×2 (13:05→22:41)
[2017-07-05] MEDS ORDERED: DiphenhydrAMINE HCL 50 MG/ML VIAL IVP PRN (13:15)
[2017-07-05 14:22] LABS: INR 1.03 (0.85-1.15); PARTIAL THROMBOPLASTIN TIME 27.3 SEC (26.3-35.5); PROTHROMBIN TIME 10.8 SEC (9.6-11.6)
[2017-07-05 15:00] VITALS: BP 174/67
[2017-07-05] MEDS: VANCOMYCIN 1.5 GM in N.S. 250 ML IV SCH (17:56)
[2017-07-05 18:24] VITALS: BP 168/72
[2017-07-05] MEDS: VANCOMYCIN 1GM+NS 250ML 250 ML IV SCH (19:47)
[2017-07-05 19:59] VITALS: BP 166/70
[2017-07-05] MEDS: LACTULOSE 20 GM/30 ML UDCUP PO SCH (21:59)
[2017-07-06] VITALS (14 sets, daily range): BP systolic 108–190; BP diastolic 54–82
[2017-07-06] MEDS: SODIUM CHLORIDE 0.9% 1000ML 1,000 ML IV SCH ×2 (04:18→09:05)
[2017-07-06] MEDS: INSULIN HUMULIN R 100 UNIT/ML 3ML SQ SCH ×4 (05:46→20:54)
[2017-07-06 06:04] LABS: HEMATOCRIT 32.1 % (36-48); MEAN CORPUSCULAR HEMOGLOBIN 27.2 pg (27.0-33.0); MEAN CORPUSCULAR VOLUME 84.9 fL (79-99); PLATELET COUNT (AUTO) 129 K/uL (130-400); RED BLOOD CELL COUNT(AUTO) 3.78 MIL/uL (4.00-5.50); RED CELL DISTRIBUTION WIDTH 17.4 % (11.0-15.5); WHITE BLOOD COUNT (AUTO) 9.7 K/uL (4.8-10.8)
[2017-07-06 06:17] LABS: CREATININE 3.6 mg/dL (0.5-1.5); POTASSIUM 3.4 mmol/L (3.5-5.1)
[2017-07-06] MEDS ORDERED: ALBUMIN (HUMAN) 25% 100 ML IV PRN (06:30)
[2017-07-06] MEDS ORDERED: SODIUM CHLORIDE 0.9% 1000ML 1,000 ML IV PRN (06:30)
[2017-07-06] MEDS ORDERED: 0.9% SODIUM CHLORIDE 250 ML IV BAG IV PRN (06:30)
[2017-07-06] MEDS ORDERED: HEPARIN SODIUM 5000UNIT/ML 1ML VIAL IJ PRN (06:30)
[2017-07-06 06:56] LABS: CREATINE KINASE MB < 0.5 ng/mL (0.5-3.6); CREATINE KINASE, TOTAL 26 U/L (21-232); MYOGLOBIN 108 ng/mL (10-92); TROPONIN I < 0.04 ng/mL (0.00-0.06)
[2017-07-06] MEDS: FERROUS SULFATE 325 MG TABLET.DR PO SCH (08:00)
[2017-07-06] MEDS: CALCIUM ACETATE 667 MG CAPSULE PO SCH ×3 (08:00→17:00)
[2017-07-06] MEDS: VITAMIN B COMPLEX 1 CAPSULE PO SCH (09:00)
[2017-07-06] MEDS: PANTOPRAZOLE SODIUM 40 MG TABLET.DR PO SCH (09:00)
[2017-07-06] MEDS: LACTULOSE 20 GM/30 ML UDCUP PO SCH ×2 (09:00→20:54)
[2017-07-06] MEDS: CARVEDILOL 6.25 MG TABLET PO SCH ×2 (09:00→20:53)
[2017-07-06] MEDS: ZOSYN 3.375GM+NS 50ML 50 ML IV SCH ×2 (09:22→20:53)
[2017-07-06] MEDS: KETOROLAC TROMETHAMINE OPTH 0.5% 5ML DROPS OU SCH ×3 (09:22→21:03)
[2017-07-06] MEDS ORDERED: ISOVUE-300 100 ML VIAL IV ONE (11:53)
[2017-07-06] MEDS ORDERED: NITROGLYCERIN 5 MG/ML 10 ML VIAL IV ONE (11:53)
[2017-07-06] MEDS ORDERED: LIDOCAINE HCL 2% 20ML ONE (11:53)
[2017-07-06] MEDS ORDERED: HEPARIN SODIUM 1000UNIT/ML 10ML VIAL ONE (11:53)
[2017-07-06] MEDS ORDERED: MIDAZOLAM HCL 1 MG/ML 2ML VIAL ONE (11:54)
[2017-07-06] MEDS ORDERED: FENTANYL CITRATE PF 50 MCG/1 ML 2ML VIAL ONE (11:54)
[2017-07-06] MEDS ORDERED: SODIUM CHLORIDE 0.9% 1000ML 1,000 ML IV SCH (13:29)
[2017-07-06] MEDS: TRAMADOL HCL 50 MG TABLET PO PRN (16:19)
[2017-07-07 03:00] VITALS: BP 122/53
[2017-07-07 05:54] LABS: HEMATOCRIT 31.3 % (36-48); MEAN CORPUSCULAR HEMOGLOBIN 27.7 pg (27.0-33.0); MEAN CORPUSCULAR HGB CONC 32.9 g/dL (32.0-36.0); MEAN CORPUSCULAR VOLUME 84.2 fL (79-99); PLATELET COUNT (AUTO) 117 K/uL (130-400); RED BLOOD CELL COUNT(AUTO) 3.72 MIL/uL (4.00-5.50); RED CELL DISTRIBUTION WIDTH 17.3 % (11.0-15.5); WHITE BLOOD COUNT (AUTO) 9.2 K/uL (4.8-10.8)
[2017-07-07 05:57] LABS: CREATININE 2.6 mg/dL (0.5-1.5); POTASSIUM 3.3 mmol/L (3.5-5.1)
[2017-07-07] MEDS: INSULIN HUMULIN R 100 UNIT/ML 3ML SQ SCH ×4 (06:34→21:00)
[2017-07-07 08:04] VITALS: BP 144/66
[2017-07-07] MEDS: LACTULOSE 20 GM/30 ML UDCUP PO SCH ×2 (09:00→23:09)
[2017-07-07] MEDS: CARVEDILOL 6.25 MG TABLET PO SCH ×3 (09:00→23:08)
[2017-07-07] MEDS: FERROUS SULFATE 325 MG TABLET.DR PO SCH (09:12)
[2017-07-07] MEDS: ZOSYN 3.375GM+NS 50ML 50 ML IV SCH ×2 (09:13→23:07)
[2017-07-07] MEDS: PANTOPRAZOLE SODIUM 40 MG TABLET.DR PO SCH (09:13)
[2017-07-07] MEDS: CALCIUM ACETATE 667 MG CAPSULE PO SCH ×3 (09:13→17:58)
[2017-07-07] MEDS: KETOROLAC TROMETHAMINE OPTH 0.5% 5ML DROPS OU SCH ×3 (09:13→23:08)
[2017-07-07] MEDS: VITAMIN B COMPLEX 1 CAPSULE PO SCH (09:13)
[2017-07-07 11:58] VITALS: BP 150/76
[2017-07-07 15:00] VITALS: BP 138/64
[2017-07-07] MEDS: VANCOMYCIN 1GM+NS 250ML 250 ML IV SCH (17:59)
[2017-07-07 20:11] VITALS: BP 165/77
[2017-07-07 23:51] VITALS: BP 145/64
[2017-07-08] VITALS (22 sets, daily range): BP systolic 140–179; BP diastolic 66–80
[2017-07-08 05:45] LABS: BASOPHILS % (AUTO) 4.4 % (0.0-5.0); EOSINOPHILS % (AUTO) 6.2 % (0.0-8.0); LYMPHOCYTES % (AUTO) 23.4 % (21.0-51.0); MEAN CORPUSCULAR HEMOGLOBIN 27.5 pg (27.0-33.0); MEAN CORPUSCULAR HGB CONC 32.5 g/dL (32.0-36.0); MEAN CORPUSCULAR VOLUME 84.6 fL (79-99); MONOCYTES % (AUTO) 10.2 % (3.0-13.0); NEUTROPHILS % (AUTO) 55.8 % (40.0-77.0); PLATELET COUNT (AUTO) 112 K/uL (130-400); RED BLOOD CELL COUNT(AUTO) 3.79 MIL/uL (4.00-5.50); RED CELL DISTRIBUTION WIDTH 17.1 % (11.0-15.5); WHITE BLOOD COUNT (AUTO) 10.1 K/uL (4.8-10.8)
[2017-07-08 06:06] LABS: CREATININE 3.6 mg/dL (0.5-1.5); POTASSIUM 3.3 mmol/L (3.5-5.1)
[2017-07-08 06:07] LABS: INR 1.07 (0.85-1.15); PARTIAL THROMBOPLASTIN TIME 27.3 SEC (26.3-35.5); PROTHROMBIN TIME 11.2 SEC (9.6-11.6)
[2017-07-08] MEDS: INSULIN HUMULIN R 100 UNIT/ML 3ML SQ SCH ×4 (06:38→21:00)
[2017-07-08] MEDS ORDERED: PAPAVERINE HCL 30 MG/ML 2ML VIAL ONE (07:01)
[2017-07-08] MEDS ORDERED: THROMBIN-JMI 5000 UNIT/VIAL TP ONE (07:01)
[2017-07-08] MEDS ORDERED: OCTYL 2-CYANOACRYLATE 1 EACH TP ONE (07:01)
[2017-07-08] MEDS ORDERED: LIDOCAINE HCL 1% 20 ML VIAL ONE (07:01)
[2017-07-08] MEDS ORDERED: BUPIVACAINE/PF 0.25% 10ML VIAL IJ ONE (07:01)
[2017-07-08] MEDS ORDERED: NEOMY SULF/POLYMYXIN B SULFATE 1 ML AMPUL IR ONE (07:02)
[2017-07-08] MEDS ORDERED: BUPIVACAINE/PF 0.5% 30ML VIAL ONE (07:40)
[2017-07-08] MEDS ORDERED: MIDAZOLAM HCL 1 MG/ML 2ML VIAL ONE ×2 (07:42→08:17)
[2017-07-08] MEDS: CALCIUM ACETATE 667 MG CAPSULE PO SCH ×3 (08:00→17:23)
[2017-07-08] MEDS ORDERED: PROPOFOL 10 MG/ML 20ML VIAL IV ONE (08:10)
[2017-07-08] MEDS: LACTULOSE 20 GM/30 ML UDCUP PO SCH ×2 (09:00→21:00)
[2017-07-08] MEDS: KETOROLAC TROMETHAMINE OPTH 0.5% 5ML DROPS OU SCH ×3 (09:00→22:16)
[2017-07-08] MEDS: CARVEDILOL 6.25 MG TABLET PO SCH ×2 (09:00→22:17)
[2017-07-08] MEDS ORDERED: HYDROCODONE/ACETAMINOPHEN 5/325 MG TAB PO PRN ×2 (11:00)
[2017-07-08] MEDS: ZOSYN 3.375GM+NS 50ML 50 ML IV SCH ×2 (11:20→22:16)
[2017-07-08] MEDS: PANTOPRAZOLE SODIUM 40 MG TABLET.DR PO SCH (17:23)
[2017-07-08] MEDS: VITAMIN B COMPLEX 1 CAPSULE PO SCH (17:24)
[2017-07-08] MEDS: FERROUS SULFATE 325 MG TABLET.DR PO SCH (17:24)
[2017-07-09 03:48] VITALS: BP 149/72
[2017-07-09] MEDS: ACETAMINOPHEN 325 MG TAB PO PRN ×2 (04:06→12:09)
[2017-07-09 05:36] LABS: BASOPHILS % (AUTO) 0.5 % (0.0-5.0); EOSINOPHILS % (AUTO) 0.4 % (0.0-8.0); HEMATOCRIT 31.9 % (36-48); LYMPHOCYTES % (AUTO) 14.2 % (21.0-51.0); MEAN CORPUSCULAR HEMOGLOBIN 27.6 pg (27.0-33.0); MEAN CORPUSCULAR HGB CONC 32.4 g/dL (32.0-36.0); MONOCYTES % (AUTO) 9.2 % (3.0-13.0); NEUTROPHILS % (AUTO) 75.7 % (40.0-77.0); PLATELET COUNT (AUTO) 107 K/uL (130-400); RED BLOOD CELL COUNT(AUTO) 3.76 MIL/uL (4.00-5.50); RED CELL DISTRIBUTION WIDTH 17.4 % (11.0-15.5); WHITE BLOOD COUNT (AUTO) 12.2 K/uL (4.8-10.8)
[2017-07-09 05:44] LABS: CREATININE 2.8 mg/dL (0.5-1.5); POTASSIUM 3.2 mmol/L (3.5-5.1)
[2017-07-09] MEDS: INSULIN HUMULIN R 100 UNIT/ML 3ML SQ SCH ×2 (06:28→11:30)
[2017-07-09 07:55] VITALS: BP 149/72
[2017-07-09] MEDS: CALCIUM ACETATE 667 MG CAPSULE PO SCH ×2 (07:55→11:43)
[2017-07-09] MEDS: LACTULOSE 20 GM/30 ML UDCUP PO SCH (09:00)
[2017-07-09] MEDS: CARVEDILOL 6.25 MG TABLET PO SCH (10:18)
[2017-07-09] MEDS: VITAMIN B COMPLEX 1 CAPSULE PO SCH (10:18)
[2017-07-09] MEDS: PANTOPRAZOLE SODIUM 40 MG TABLET.DR PO SCH (10:18)
[2017-07-09] MEDS: KETOROLAC TROMETHAMINE OPTH 0.5% 5ML DROPS OU SCH (10:26)
[2017-07-09] MEDS ORDERED: FERROUS FUMARATE 324 MG TABLET ONE (10:48)
[2017-07-09] MEDS: ZOSYN 3.375GM+NS 50ML 50 ML IV SCH (10:50)
[2017-07-09] MEDS: FERROUS SULFATE 325 MG TABLET.DR PO SCH (11:40)
[2017-07-09 11:49] VITALS: BP 123/59
[2017-07-09] MEDS ORDERED: AMOXICILLIN/POTASSIUM CLAV 500-125 TABLET PO SCH (13:00)
[2017-07-09] MEDS ORDERED: CARV6.2579 PO (13:02)
[2017-07-09] MEDS ORDERED: ACET-2247 PO (13:02)
[2017-07-09] MEDS ORDERED: HYDR-3421 PO (13:02)
[2017-07-09] MEDS ORDERED: PANT40TA PO (13:02)
== END 2017-07-09 13:38 | DRG 673 ==
LOC: EDH 12:32 → EDHIP 14:25 → 4CH 16:55
PROVIDERS: ADMIT Internal Medicine Nephrology; ATTEND Internal Medicine Nephrology
PROC: 5A1D70Z Performance of Urinary Filtration, Intermittent, Less than 6 Hours Per Day (ICD-10-PCS; 2017-06-30)
PROC: 0JBR0ZZ Excision of Left Foot Subcutaneous Tissue and Fascia, Open Approach (ICD-10-PCS; principal; 2017-07-03)
PROC: B41D1ZZ Fluoroscopy of Aorta and Bilateral Lower Extremity Arteries using Low Osmolar Contrast (ICD-10-PCS; 2017-07-06)
PROC: B41G1ZZ Fluoroscopy of Left Lower Extremity Arteries using Low Osmolar Contrast (ICD-10-PCS; 2017-07-06)
PROC: 5A1D70Z Performance of Urinary Filtration, Intermittent, Less than 6 Hours Per Day (ICD-10-PCS; 2017-07-06)
PROC: 03180ZD Bypass Left Brachial Artery to Upper Arm Vein, Open Approach (ICD-10-PCS; 2017-07-08)
PROC: 5A1D70Z Performance of Urinary Filtration, Intermittent, Less than 6 Hours Per Day (ICD-10-PCS; 2017-07-08)
DX: I12.0 Hypertensive chronic kidney disease with stage 5 chronic kidney disease or end stage renal disease (principal); N18.6 End stage renal disease; E11.42 Type 2 diabetes mellitus with diabetic polyneuropathy; L03.115 Cellulitis of right lower limb; E11.21 Type 2 diabetes mellitus with diabetic nephropathy; E87.70 Fluid overload, unspecified; E11.52 Type 2 diabetes mellitus with diabetic peripheral angiopathy with gangrene; L03.116 Cellulitis of left lower limb; L97.309 Non-pressure chronic ulcer of unspecified ankle with unspecified severity; L97.809 Non-pressure chronic ulcer of other part of unspecified lower leg with unspecified severity; E11.621 Type 2 diabetes mellitus with foot ulcer; E11.610 Type 2 diabetes mellitus with diabetic neuropathic arthropathy; E11.22 Type 2 diabetes mellitus with diabetic chronic kidney disease; R60.0 Localized edema; D64.9 Anemia, unspecified; B35.1 Tinea unguium; E11.622 Type 2 diabetes mellitus with other skin ulcer; I25.10 Atherosclerotic heart disease of native coronary artery without angina pectoris; L97.529 Non-pressure chronic ulcer of other part of left foot with unspecified severity; S90.822A Blister (nonthermal), left foot, initial encounter; Z99.2 Dependence on renal dialysis; Z91.15 Patient's noncompliance with renal dialysis; Z90.49 Acquired absence of other specified parts of digestive tract; Z88.8 Allergy status to other drugs, medicaments and biological substances; Z90.710 Acquired absence of both cervix and uterus; Z87.01 Personal history of pneumonia (recurrent); Z83.3 Family history of diabetes mellitus; Z82.49 Family history of ischemic heart disease and other diseases of the circulatory system
CPT/HCPCS: 36247; 36415; 36558; 71045; 73630; 73718; 75710; 75716; 77001; 80048; 80053; 80061; 82040; 82550; 82553; 82565; 82948; 83036; 83690; 83735; 83874; 84100; 84484; 84520; 85025; 85027; 85610; 85730; 86701; 86704; 86706; 87040; 87070; 87076; 87205; 87340; 87390; 87520; 90935; 93005; 93925; 93971; 99152; 99153; C1750; C1760; C1769; C1894; C9113; J1200; J1644; J1815; J2250; J2405; J2440; J2543; J2704; J3010; J3370; J3490; J7030; P9046; Q9967

== ENCOUNTER 2018-10-29 19:42 | Emergency (ER) | payer OTHER ==
[2018-10-29 20:17] LABS: BASOPHILS % (AUTO) 0.8 % (0.0-5.0); EOSINOPHILS % (AUTO) 3.7 % (0.0-8.0); HEMATOCRIT 37.3 % (36-48); LYMPHOCYTES % (AUTO) 17.9 % (21.0-51.0); MEAN CORPUSCULAR HEMOGLOBIN 28.9 pg (27.0-33.0); MEAN CORPUSCULAR HGB CONC 32.9 g/dL (32.0-36.0); MEAN CORPUSCULAR VOLUME 87.7 fL (79-99); MONOCYTES % (AUTO) 9.7 % (3.0-13.0); NEUTROPHILS % (AUTO) 67.9 % (40.0-77.0); PLATELET COUNT (AUTO) 111 K/uL (130-400); RED BLOOD CELL COUNT(AUTO) 4.25 MIL/uL (4.00-5.50); RED CELL DISTRIBUTION WIDTH 18.6 % (11.0-15.5); WHITE BLOOD COUNT (AUTO) 9.6 K/uL (4.8-10.8)
[2018-10-29 20:22] LABS: APPEARANCE,URINE CLOUDY (CLEAR); BILIRUBIN,URINE NEGATIVE (NEGATIVE); COLOR,URINE YELLOW (YELLOW); GLUCOSE, URINE (UA) 250 mg/dL (NEGATIVE); KETONES,URINE NEGATIVE (NEGATIVE); LEUKOCYTE ESTERASE ,URINE LARGE (NEGATIVE); NITRATE,URINE NEGATIVE (NEGATIVE); OCCULT BLOOD,URINE MODERATE (NEGATIVE); PH,URINE 7.5 (5.0-8.0); PROTEIN,URINE 100 mg/dL (NEGATIVE); UROBILINOGEN,URINE 0.2 mg/dL (0.2-1.0)
[2018-10-29 20:26] LABS: CREATININE 5.4 mg/dL (0.5-1.5); POTASSIUM 4.1 mmol/L (3.5-5.1)
[2018-10-29 20:30] LABS: ALBUMIN 3.8 g/dL (3.5-5.0); BILIRUBIN,TOTAL 0.4 mg/dL (0.2-1.0); TOTAL PROTEIN, SERUM 8.6 g/dL (6.0-8.3)
[2018-10-29] MEDS ORDERED: ONDANSETRON HCL 4 MG/2 ML VIAL ONE (20:33)
[2018-10-29] MEDS ORDERED: MORPHINE SULFATE 4 MG/1ML SYG ONE (20:33)
[2018-10-29 20:49] LABS: BACTERIA,URINE Moderate /HPF (None Seen); WBC,URINE >100 /HPF (0-1)
[2018-10-29] MEDS ORDERED: CEFTRIAXONE SODIUM 1 GM ONE (21:50)
== END 2018-10-29 22:58 | disposition home or self-care (01) ==
LOC: EDH 19:42
DX: N39.0 Urinary tract infection, site not specified (principal); I12.0 Hypertensive chronic kidney disease with stage 5 chronic kidney disease or end stage renal disease; E11.22 Type 2 diabetes mellitus with diabetic chronic kidney disease; N18.6 End stage renal disease; Z90.49 Acquired absence of other specified parts of digestive tract; Z90.710 Acquired absence of both cervix and uterus
CPT/HCPCS: 36415; 74176; 80053; 81001; 83690; 85025; 87077; 87088; 87186; 93005; 96374; 96375; 99285; J0696; J2270; J2405

== ENCOUNTER → 2018-11-17 | Outpatient (CLI) | payer OTHER | END | disposition home or self-care (01) | LOC: SHCH 08:14 | PROVIDERS: ATTEND Internal Medicine Cardiovascular Disease | DX: I20.9 Angina pectoris, unspecified (principal); I87.2 Venous insufficiency (chronic) (peripheral); R06.02 Shortness of breath; R06.09 Other forms of dyspnea; E11.9 Type 2 diabetes mellitus without complications; K21.9 Gastro-esophageal reflux disease without esophagitis | CPT/HCPCS: 93306; 93970 ==

== ENCOUNTER → 2019-01-22 | Outpatient (CLI) | payer OTHER ==
--- NOTE | 2018-12-22 12:25 | NUR ---
PT WAS A NO SHOW FOR EXAM ON THIS DATE
[~2019-01-22] VITALS: Ht 162.6 cm; Wt 104.8 kg
[~2019-01-22] MED LIST changes: -AMLO5TAB2 PO; -AMOX-426 PO; -CARV6.2579 PO; -CHOL100040 PO; -FERS325 PO; -FOLI1TAB85 PO; -FURO80TA3 PO; -GLIM1TAB2 PO; +REGADENOSON 0.4 MG/5 ML PF SYG IVP SCH
== END | disposition home or self-care (01) ==
LOC: SHCH 08:12
PROVIDERS: ATTEND Internal Medicine Cardiovascular Disease
DX: I25.89 Other forms of chronic ischemic heart disease (principal)
CPT/HCPCS: 78452; 93017; 96374; A9500 ×2; J2785

== ENCOUNTER 2019-02-19 08:30 | Day surgery (SDC) | payer OTHER ==
[2019-02-15 14:00] VITALS: BP 138/56
[2019-02-15 14:26] LABS: BASOPHILS % (AUTO) 1.2 % (0.0-5.0); HEMATOCRIT 35.9 % (36-48); LYMPHOCYTES % (AUTO) 20.2 % (21.0-51.0); MEAN CORPUSCULAR HEMOGLOBIN 29.2 pg (27.0-33.0); MEAN CORPUSCULAR HGB CONC 32.7 g/dL (32.0-36.0); MEAN CORPUSCULAR VOLUME 89.1 fL (79-99); MONOCYTES % (AUTO) 8.6 % (3.0-13.0); PLATELET COUNT (AUTO) 140 K/uL (130-400); RED BLOOD CELL COUNT(AUTO) 4.03 MIL/uL (4.00-5.50); RED CELL DISTRIBUTION WIDTH 17.6 % (11.0-15.5); WHITE BLOOD COUNT (AUTO) 8.1 K/uL (4.8-10.8)
[2019-02-15 14:30] LABS: CREATININE 4.2 mg/dL (0.5-1.5); POTASSIUM 3.4 mmol/L (3.5-5.1)
[2019-02-15 14:32] LABS: INR 0.98 (0.85-1.15); PARTIAL THROMBOPLASTIN TIME 26.4 SEC (26.3-35.5); PROTHROMBIN TIME 10.3 SEC (9.6-11.6)
[2019-02-15 16:21] LABS: APPEARANCE,URINE CLOUDY (CLEAR); BILIRUBIN,URINE SMALL (NEGATIVE); COLOR,URINE YELLOW (YELLOW); GLUCOSE, URINE (UA) 250 mg/dL (NEGATIVE); KETONES,URINE 5 mg/dL (NEGATIVE); LEUKOCYTE ESTERASE ,URINE MODERATE (NEGATIVE); NITRATE,URINE NEGATIVE (NEGATIVE); OCCULT BLOOD,URINE LARGE (NEGATIVE); PH,URINE 6.5 (5.0-8.0); PROTEIN,URINE >=300 mg/dL (NEGATIVE); UROBILINOGEN,URINE 0.2 mg/dL (0.2-1.0)
[2019-02-15 16:25] LABS: BACTERIA,URINE Moderate /HPF (None Seen); SQUAMOUS EPITHELIAL CELL,UR Few /HPF (0-2); WBC,URINE >100 /HPF (0-1)
--- NOTE | 2019-02-16 11:01 | NUR ---
labs faxed and reported abnormal ua/bmp to dr. naomi perez;a asst. she will inform louise quevedo and call me back.
--- NOTE | 2019-02-16 11:18 | NUR ---
BREE WARE ON PHONE. IN REGARDS TO LABS ORDERS RECEIVED TO GIVE 1 GRAM OF ROCEPHIN ON ARRIVAL DAY OF SURGERY. Addendum: 02/19/19 at 1839 by MINNIE BRAN RN RN NURSING: PT AAOX3, NO C/O PAIN TO RT GROIN, DSTAT IS D/I NO ACTIVE BLEEDING OR HEMATOMA. PT ABLE TO TOLERATE FLUIDS, ABLE TO AMBULATE TO RESTROOM AND VOID W/O DIFFCULTY. PT ABLE TO DRESS HERSELF WITH MINIMAL ASSISTANCE FROM SPOUSE. POST CARE INSTRUCTIONS GIVEN TO PT AND , BOTH VERBALIZED UNDERSTANDING. PT IV D/C, PT TAKEN OUT IN WHEELCHAIR, DRIVEN HOME BY .
[~2019-02-19] VITALS: Ht 162.6 cm; Wt 101.5 kg
[2019-02-19] VITALS (9 sets, daily range): BP systolic 102–135; BP diastolic 44–74
[~2019-02-19 08:30] MED LIST changes: +CALC667C10 PO; +CEFTRIAXONE SODIUM 1 GM IVP SCH; +ERGO500014 PO; +FOLI1TAB85 PO; +ISOS30TA6 PO; +LOPE2 PO; -REGADENOSON 0.4 MG/5 ML PF SYG IVP SCH; +ROPI0.5T5 PO; +SODIUM CHLORIDE 0.9% 1000ML 1,000 ML IV SCH; +VITA400C70 PO
[2019-02-19] MEDS ORDERED: CALC750T4 PO (09:54)
[2019-02-19] MEDS ORDERED: MIDO10TA PO (09:54)
[2019-02-19] MEDS ORDERED: CBD OIL PO (09:54)
[2019-02-19] MEDS ORDERED: IOHEXOL-350 50ML VIAL IV ONE (11:38)
[2019-02-19] MEDS ORDERED: IOHEXOL 350 MG/ML 100ML INFUS..BTL IV ONE (11:38)
[2019-02-19] MEDS ORDERED: BIVALIRUDIN 250 MG/VIAL IV ONE (11:38)
[2019-02-19] MEDS ORDERED: LIDOCAINE HCL 2% 20ML ONE (11:38)
[2019-02-19] MEDS ORDERED: NITROGLYCERIN 5 MG/ML 10 ML VIAL IV ONE (11:38)
[2019-02-19] MEDS ORDERED: MIDAZOLAM HCL 1 MG/ML 2ML VIAL ONE (12:02)
[2019-02-19] MEDS ORDERED: FENTANYL CITRATE PF 50 MCG/1 ML 2ML VIAL ONE (12:02)
[2019-02-19] MEDS ORDERED: DEXTROSE 50%-WATER 50 ML DISP.SYRIN IV PRN (13:00)
[2019-02-19] MEDS ORDERED: HYDRALAZINE HCL 20 MG/ML VIAL IV PRN (13:00)
[2019-02-19] MEDS ORDERED: GLUCAGON 1MG KIT 1 MG ML IM PRN (13:00)
[2019-02-19] MEDS ORDERED: INSULIN HUMULIN R 100 UNIT/ML 3ML SQ SCH (16:30)
== END 2019-02-19 18:10 | disposition home or self-care (01) ==
LOC: DAH 08:30
PROVIDERS: ATTEND Internal Medicine Cardiovascular Disease
DX: I20.0 Unstable angina (principal); R94.39 Abnormal result of other cardiovascular function study; E78.5 Hyperlipidemia, unspecified; I12.0 Hypertensive chronic kidney disease with stage 5 chronic kidney disease or end stage renal disease; E11.22 Type 2 diabetes mellitus with diabetic chronic kidney disease; N18.6 End stage renal disease; K21.9 Gastro-esophageal reflux disease without esophagitis; Z88.5 Allergy status to narcotic agent; Z79.899 Other long term (current) drug therapy; Z99.2 Dependence on renal dialysis; Z90.710 Acquired absence of both cervix and uterus; Z90.49 Acquired absence of other specified parts of digestive tract; Z82.49 Family history of ischemic heart disease and other diseases of the circulatory system; Z83.3 Family history of diabetes mellitus
CPT/HCPCS: 36415; 71045; 80048; 81001; 82948 ×3; 85025; 85610; 85730; 93005; 93458; A4215; A4216; A4221; A4222; A4223 ×3; A4606; C1894 ×2; J0696; J1644; J2250; J3010; J3490 ×2; J7030; Q9965; Q9967; 99156; 99157; J0583

== ENCOUNTER 2020-07-10 06:46 | Inpatient (IN) | payer OTHER ==
[~2020-07-10] VITALS: Ht 165.1 cm; Wt 110.0 kg
[~2020-07-10 06:46] MED LIST changes: +CALC750T4 PO; +CBD OIL PO; -CEFTRIAXONE SODIUM 1 GM IVP SCH; -ISOS30TA6 PO; +ISOS30TA92 PO; +MIDO10TA PO; -ROPI0.5T5 PO; +ROPI0.5T7 PO; -SODIUM CHLORIDE 0.9% 1000ML 1,000 ML IV SCH; +VITA-164 PO; -VITA400C70 PO
[2020-07-10 07:29] LABS: BASOPHILS % (AUTO) 0.6 % (0.0-5.0); EOSINOPHILS % (AUTO) 1.4 % (0.0-8.0); HEMATOCRIT 36.1 % (36-48); LYMPHOCYTES % (AUTO) 6.4 % (21.0-51.0); MEAN CORPUSCULAR HEMOGLOBIN 26.9 pg (27.0-33.0); MEAN CORPUSCULAR HGB CONC 30.5 g/dL (32.0-36.0); MEAN CORPUSCULAR VOLUME 88.3 fL (79-99); MONOCYTES % (AUTO) 4.6 % (3.0-13.0); NEUTROPHILS % (AUTO) 86.3 % (40.0-77.0); NUCLEATED RED BLOOD CELLS 0.1 % (0.0-0.19); PLATELET COUNT (AUTO) 135 K/uL (130-400); RED BLOOD CELL COUNT(AUTO) 4.09 MIL/uL (4.00-5.50); RED CELL DISTRIBUTION WIDTH 16.9 % (11.0-15.5); WHITE BLOOD COUNT (AUTO) 15.6 K/uL (4.8-10.8)
[2020-07-10] MEDS ORDERED: ONDANSETRON 4MG INJ ONE (07:35)
[2020-07-10] MEDS ORDERED: ACETAMINOPHEN 500 MG TABLET ONE (07:35)
[2020-07-10] MEDS ORDERED: MORPHINE 2 MG SYG ONE ×2 (07:36→10:18)
[2020-07-10 07:42] LABS: ALBUMIN 3.5 g/dL (3.5-5.0); BILIRUBIN,TOTAL 0.4 mg/dL (0.2-1.0); CREATININE 6.8 mg/dL (0.5-1.5); CRP QUANTITATIVE 30.6 mg/L (0.00-9.0); POTASSIUM 4.3 mmol/L (3.5-5.1); TOTAL PROTEIN, SERUM 8.2 g/dL (6.0-8.3)
[2020-07-10] MEDS ORDERED: 0.9%NACL 50ML 50 ML IV ONE (08:31)
[2020-07-10] MEDS ORDERED: CEFTRIAXONE 1G VIAL ONE (08:31)
[2020-07-10 09:27] LABS: APPEARANCE,URINE Cloudy (CLEAR); BILIRUBIN,URINE Negative (NEGATIVE); COLOR,URINE Yellow (YELLOW); GLUCOSE, URINE (UA) 500 mg/dL (NEGATIVE); KETONES,URINE Negative (NEGATIVE); LEUKOCYTE ESTERASE ,URINE Large (NEGATIVE); NITRATE,URINE Negative (NEGATIVE); OCCULT BLOOD,URINE Small (NEGATIVE); PH,URINE 8.5 (5.0-8.0); PROTEIN,URINE 300 mg/dL (NEGATIVE); UROBILINOGEN,URINE 0.2 mg/dL (0.2-1.0)
[2020-07-10 09:50] LABS: BACTERIA,URINE Rare /HPF (None Seen)
[2020-07-10] MEDS ORDERED: ONDANSETRON 4MG INJ IVP PRN (14:00)
[2020-07-10] MEDS ORDERED: VANCOMYCIN PROTOCOL PER PHARMACY IV SCH (14:00)
[2020-07-10] MEDS ORDERED: CLONIDINE HCL 0.1 MG TABLET PO PRN (14:00)
[2020-07-10] MEDS ORDERED: RENAL DOSE IV PRN (14:00)
[2020-07-10] MEDS ORDERED: LABETALOL 20MG SYG IV PRN (14:00)
[2020-07-10] MEDS ORDERED: ACETAMINOPHEN 650 MG SUPPOSITORY RC PRN (14:00)
[2020-07-10] MEDS ORDERED: MORPHINE 4 MG SYG IVP PRN (14:00)
[2020-07-10] MEDS: ZOSYN 3.375GM+NS 50ML 50 ML IV SCH (14:00)
[2020-07-10 14:22] LABS: INR 1.1 (0.85-1.15); PROTHROMBIN TIME 11.7 SEC (9.6-11.6)
[2020-07-10 14:24] LABS: PARTIAL THROMBOPLASTIN TIME 27.1 SEC (26.3-35.5)
[2020-07-10 14:31] LABS: TROPONIN I 0.07 ng/mL (0.00-0.06)
[2020-07-10] MEDS ORDERED: COMPOUND IV REFRIGERATED 1 EACH IVSOLN MISC PRN (14:45)
[2020-07-10] MEDS ORDERED: VANCOMYCIN 1G 2 GM in 0.9% NACL 500ML IV.SOLN 500 ML IV ONE (15:00)
[2020-07-10] MEDS ORDERED: 0.9% NACL 250ML 500 ML IV ONE (15:46)
[2020-07-10] MEDS: INSULIN HUMULIN R 100 UNIT/ML 3ML SQ SCH ×2 (16:30→21:00)
[2020-07-10] MEDS ORDERED: ALBUMIN (HUMAN) 25% 100 ML IV PRN (16:30)
[2020-07-10] MEDS: METOCLOPRAMIDE 5 MG TABLET PO SCH ×2 (16:30→21:00)
[2020-07-10] MEDS: PHARMACY COMMUNICATION MISC SCH ×2 (16:45→20:45)
[2020-07-10] MEDS ORDERED: INSULIN HUMULIN R 100 UNIT/ML 3ML ONE (18:11)
[2020-07-10 20:26] LABS: TROPONIN I 0.08 ng/mL (0.00-0.06)
[2020-07-10] MEDS ORDERED: METOCLOPRAMIDE 5 MG TABLET ONE (21:07)
[2020-07-11] MEDS: PHARMACY COMMUNICATION MISC SCH ×6 (00:45→20:45)
[2020-07-11] MEDS: ZOSYN 3.375GM+NS 50ML 50 ML IV SCH ×2 (02:00→14:00)
[2020-07-11 03:40] LABS: BASOPHILS % (AUTO) 0.4 % (0.0-5.0); HEMATOCRIT 33.5 % (36-48); LYMPHOCYTES % (AUTO) 5.1 % (21.0-51.0); MEAN CORPUSCULAR HEMOGLOBIN 27.5 pg (27.0-33.0); MEAN CORPUSCULAR HGB CONC 30.7 g/dL (32.0-36.0); MEAN CORPUSCULAR VOLUME 89.6 fL (79-99); MONOCYTES % (AUTO) 10.3 % (3.0-13.0); NEUTROPHILS % (AUTO) 83.6 % (40.0-77.0); NUCLEATED RED BLOOD CELLS 0.1 % (0.0-0.19); PLATELET COUNT (AUTO) 116 K/uL (130-400); RED BLOOD CELL COUNT(AUTO) 3.74 MIL/uL (4.00-5.50); RED CELL DISTRIBUTION WIDTH 17.2 % (11.0-15.5); WHITE BLOOD COUNT (AUTO) 22.6 K/uL (4.8-10.8)
[2020-07-11 03:55] LABS: ALBUMIN 2.9 g/dL (3.5-5.0); BILIRUBIN,TOTAL 0.5 mg/dL (0.2-1.0); PHOSPHORUS 4.5 mg/dL (2.5-4.9); TOTAL PROTEIN, SERUM 6.9 g/dL (6.0-8.3)
[2020-07-11 04:14] LABS: TROPONIN I 0.09 ng/mL (0.00-0.06)
[2020-07-11] MEDS: INSULIN HUMULIN R 100 UNIT/ML 3ML SQ SCH ×4 (07:30→21:00)
[2020-07-11] MEDS: METOCLOPRAMIDE 5 MG TABLET PO SCH ×4 (07:30→21:00)
[2020-07-11] MEDS ORDERED: Vitamin B Complex/Vit C/Folic Acid ONE (08:10)
[2020-07-11] MEDS ORDERED: METOCLOPRAMIDE 10 MG TABLET ONE (08:10)
[2020-07-11] MEDS ORDERED: ENOXAPARIN SODIUM 30 MG/0.3 ML SQ ONE (08:10)
[2020-07-11] MEDS ORDERED: ACETAMINOPHEN 325 MG TAB ONE ×2 (08:11→13:36)
[2020-07-11] MEDS ORDERED: ONDANSETRON 4MG INJ ONE (08:11)
[2020-07-11] MEDS ORDERED: PANTOPRAZOLE 40 MG TAB DR ONE (08:11)
[2020-07-11] MEDS ORDERED: MORPHINE 2 MG SYG ONE (08:11)
[2020-07-11] MEDS: Vitamin B Complex/Vit C/Folic Acid PO SCH (09:00)
[2020-07-11] MEDS: ENOXAPARIN SODIUM 30 MG/0.3 ML SQ SCH (09:00)
[2020-07-11] MEDS: PANTOPRAZOLE 40 MG TAB DR PO SCH (09:00)
[2020-07-11] MEDS ORDERED: NOREPINEPHRIN 4MG/NS 250ML 250 ML IV SCH (12:30)
[2020-07-11] MEDS ORDERED: MIDODRINE HCL 5 MG TABLET ONE (12:43)
[2020-07-11] MEDS: MIDODRINE HCL 5 MG TABLET PO SCH ×2 (14:00→21:00)
[2020-07-11] MEDS ORDERED: 0.9% NACL 500ML IV.SOLN 500 ML IV SCH (15:30)
[2020-07-11] MEDS ORDERED: ZOSYN 3.375GM+NS 50ML 50 ML IV ONE (15:40)
[2020-07-11] MEDS ORDERED: 0.9% NACL 500ML IV.SOLN IV SCH (16:00)
[2020-07-11] MEDS ORDERED: METOCLOPRAMIDE 5 MG TABLET ONE (20:44)
[2020-07-11] MEDS: LEVOFLOXACIN 500 MG/D5W 100 ML 100 ML IV SCH (21:00)
[2020-07-11] MEDS ORDERED: LEVOFLOXACIN 500 MG/D5W 100 ML 100 ML ONE (21:30)
[2020-07-12] VITALS: BP 129/57
[2020-07-12] MEDS: PHARMACY COMMUNICATION MISC SCH ×6 (00:45→20:45)
[2020-07-12] MEDS: ZOSYN 3.375GM+NS 50ML 50 ML IV SCH ×2 (02:44→14:00)
[2020-07-12 04:00] VITALS: BP 122/50
[2020-07-12] MEDS: INSULIN HUMULIN R 100 UNIT/ML 3ML SQ SCH ×4 (05:16→20:48)
[2020-07-12 05:21] LABS: HEMATOCRIT 32.7 % (36-48); MEAN CORPUSCULAR HGB CONC 29.7 g/dL (32.0-36.0); MEAN CORPUSCULAR VOLUME 91.1 fL (79-99); RED BLOOD CELL COUNT(AUTO) 3.59 MIL/uL (4.00-5.50); RED CELL DISTRIBUTION WIDTH 17.4 % (11.0-15.5); WHITE BLOOD COUNT (AUTO) 18.4 K/uL (4.8-10.8)
[2020-07-12 05:39] LABS: CREATININE 6.9 mg/dL (0.5-1.5); POTASSIUM 4.3 mmol/L (3.5-5.1)
[2020-07-12 08:00] VITALS: BP 109/50
[2020-07-12] MEDS: PANTOPRAZOLE 40 MG TAB DR PO SCH (10:12)
[2020-07-12] MEDS: Vitamin B Complex/Vit C/Folic Acid PO SCH (10:12)
[2020-07-12] MEDS: MIDODRINE HCL 5 MG TABLET PO SCH ×3 (10:12→20:38)
[2020-07-12] MEDS: METOCLOPRAMIDE 5 MG TABLET PO SCH ×4 (10:12→20:49)
[2020-07-12] MEDS: ENOXAPARIN SODIUM 30 MG/0.3 ML SQ SCH (10:13)
[2020-07-12] MEDS ORDERED: PNEUMOCOCCAL VACCINE POLYVALENT 0.5 ML/VIAL [PPV] SQ SCH (11:30)
[2020-07-12 12:00] VITALS: BP 133/64
[2020-07-12 13:25] LABS: ALBUMIN 2.6 g/dL (3.5-5.0); BILIRUBIN,DIRECT 0.3 mg/dL (0.0-0.3); BILIRUBIN,TOTAL 0.6 mg/dL (0.2-1.0); TOTAL PROTEIN, SERUM 7.1 g/dL (6.0-8.3)
[2020-07-12] MEDS ORDERED: COMPOUND IV REFRIGERATED 1 EACH IVSOLN MISC PRN (13:45)
[2020-07-12] MEDS: VANCOMYCIN 1G 1.75 GM in 0.9% NACL 250ML 250 ML IV SCH (14:11)
[2020-07-12] MEDS ORDERED: VANCOMYCIN 1G/250ML KIT 250 ML IV NR (15:00)
[2020-07-12 16:11] VITALS: BP 134/63
[2020-07-12 20:00] VITALS: BP 142/89
[2020-07-13] VITALS: BP 122/57
[2020-07-13] MEDS: PHARMACY COMMUNICATION MISC SCH ×3 (00:45→08:45)
[2020-07-13] MEDS: ZOSYN 3.375GM+NS 50ML 50 ML IV SCH (01:12)
[2020-07-13 04:00] VITALS: BP 130/58
[2020-07-13 05:12] LABS: HEMATOCRIT 29.4 % (36-48); MEAN CORPUSCULAR HGB CONC 29.9 g/dL (32.0-36.0); MEAN CORPUSCULAR VOLUME 90.2 fL (79-99); RED BLOOD CELL COUNT(AUTO) 3.26 MIL/uL (4.00-5.50); RED CELL DISTRIBUTION WIDTH 17.2 % (11.0-15.5); WHITE BLOOD COUNT (AUTO) 16.3 K/uL (4.8-10.8)
[2020-07-13] MEDS: ACETAMINOPHEN 325 MG TAB PO PRN (05:38)
[2020-07-13] MEDS: METOCLOPRAMIDE 5 MG TABLET PO SCH ×4 (05:38→20:26)
[2020-07-13 05:46] LABS: CREATININE 5.3 mg/dL (0.5-1.5); POTASSIUM 4.1 mmol/L (3.5-5.1)
[2020-07-13] MEDS: INSULIN HUMULIN R 100 UNIT/ML 3ML SQ SCH ×4 (06:24→20:46)
[2020-07-13 08:03] VITALS: BP 110/43
[2020-07-13] MEDS ORDERED: MIDODRINE HCL 5 MG TABLET PO PRN (08:45)
[2020-07-13] MEDS: ENOXAPARIN SODIUM 30 MG/0.3 ML SQ SCH (09:24)
[2020-07-13] MEDS: PANTOPRAZOLE 40 MG TAB DR PO SCH (09:24)
[2020-07-13] MEDS: Vitamin B Complex/Vit C/Folic Acid PO SCH (09:24)
[2020-07-13 12:00] VITALS: BP 135/61
[2020-07-13] MEDS ORDERED: CALCIUM CARBONATE 750 MG PO PRN (13:15)
[2020-07-13] MEDS: CEFTRIAXONE 1G VIAL IVP SCH (15:25)
[2020-07-13] MEDS ORDERED: CALCIUM CARB 500MG CHEW TAB PO PRN (15:45)
[2020-07-13] MEDS: MORPHINE 2 MG SYG IVP PRN ×2 (15:50→22:15)
[2020-07-13 16:00] VITALS: BP 151/73
[2020-07-13] MEDS: CALCIUM AC 667MG CAP PO SCH (17:21)
[2020-07-13 20:00] VITALS: BP 134/64
[2020-07-13] MEDS: ROPINIROLE HCL 0.25 MG TABLET PO SCH (20:26)
[2020-07-13] MEDS: LEVOFLOXACIN 500 MG/D5W 100 ML 100 ML IV SCH (20:26)
[2020-07-13] MEDS ORDERED: ROPINIROLE HCL 0.5 MG PO SCH (21:00)
[2020-07-14] VITALS (13 sets, daily range): BP systolic 80–145; BP diastolic 45–70
[2020-07-14 05:27] LABS: HEMATOCRIT 30.2 % (36-48); MEAN CORPUSCULAR HEMOGLOBIN 26.6 pg (27.0-33.0); MEAN CORPUSCULAR HGB CONC 30.5 g/dL (32.0-36.0); MEAN CORPUSCULAR VOLUME 87.3 fL (79-99); PLATELET COUNT (AUTO) 137 K/uL (130-400); RED BLOOD CELL COUNT(AUTO) 3.46 MIL/uL (4.00-5.50); RED CELL DISTRIBUTION WIDTH 17.1 % (11.0-15.5)
[2020-07-14 05:57] LABS: CREATININE 6.5 mg/dL (0.5-1.5); PHOSPHORUS 6.1 mg/dL (2.5-4.9); POTASSIUM 4.4 mmol/L (3.5-5.1)
[2020-07-14] MEDS: METOCLOPRAMIDE 5 MG TABLET PO SCH ×4 (06:17→21:00)
[2020-07-14] MEDS: INSULIN HUMULIN R 100 UNIT/ML 3ML SQ SCH ×4 (06:18→21:00)
[2020-07-14 08:10] LABS: EOSINOPHILS % (MANUAL) 2 % (1-6); LYMPHOCYTES % (MANUAL) 9 % (22-44); MONOCYTES % (MANUAL) 9 % (2-9); SEGMENTED NEUTROPHILS % 80 % (40-70)
[2020-07-14 08:11] LABS: MAN.DIFF COMMENT-IMPRESSION MANUAL DIFFERENTIAL
[2020-07-14 08:13] LABS: PLATELET MORPHOLOGY COMMENT ADEQUATE
[2020-07-14] MEDS: VITAMIN E MIXED PO SCH (09:00)
[2020-07-14] MEDS ORDERED: NON-FORMULARY MEDICATION 1 EACH (Vit B Cmplx 3/FA/Vit C/Biotin (Rena-Vite Rx Tablet) 1 EAC PO SCH (09:00)
[2020-07-14] MEDS ORDERED: VITAMIN E MIXED PO SCH (09:00)
[2020-07-14] MEDS ORDERED: Vitamin B Complex/Vit C/Folic Acid PO SCH (09:00)
[2020-07-14] MEDS: MORPHINE 2 MG SYG IVP PRN (09:17)
[2020-07-14] MEDS: CALCIUM AC 667MG CAP PO SCH ×3 (09:45→16:49)
[2020-07-14] MEDS: Vitamin B Complex/Vit C/Folic Acid PO SCH (09:45)
[2020-07-14] MEDS: ISOSORBIDE MONO 30MG SR TAB PO SCH (09:46)
[2020-07-14] MEDS: PANTOPRAZOLE 40 MG TAB DR PO SCH (09:46)
[2020-07-14] MEDS: ENOXAPARIN SODIUM 30 MG/0.3 ML SQ SCH (09:47)
[2020-07-14] MEDS ORDERED: METOPROLOL TARTRATE 1 MG/ML 5ML VIAL IV ONE ×3 (10:38→18:50)
[2020-07-14] MEDS ORDERED: METOPROLOL TARTRATE 1 MG/ML 5ML VIAL IV SCH ×4 (11:00→19:50)
[2020-07-14] MEDS: CEFTRIAXONE 1G VIAL IVP SCH (12:10)
[2020-07-14] MEDS ORDERED: METOPROLOL TARTRATE 25 MG TAB PO SCH (14:00)
[2020-07-14] MEDS ORDERED: DILTIAZEM 60MG TAB PO SCH ×2 (16:30→18:00)
[2020-07-14] MEDS ORDERED: IBUPROFEN 200 MG TAB ONE (16:33)
[2020-07-14] MEDS: DILTIAZEM 60MG TAB PO SCH ×2 (16:35→16:40)
[2020-07-14] MEDS ORDERED: DILTIAZEM 50MG VIAL IV STA (16:38)
[2020-07-14] MEDS: IBUPROFEN 400 MG TABLET PO SCH ×2 (16:41→22:30)
[2020-07-14] MEDS ORDERED: DILTIAZEM 125 MG/25 ML INJ 125 MG in 0.9%NACL 100ML 100 ML IV PRN (17:00)
[2020-07-14] MEDS ORDERED: DILTIAZEM 125 MG/25 ML INJ 125 MG in 0.9%NACL 100ML 100 ML IV SCH (17:15)
[2020-07-14] MEDS ORDERED: PHARMACY COMMUNICATION MISC SCH (19:00)
[2020-07-14 19:13] LABS: ABG BASE EXCESS 1.9 mmol/L (-2.0-3.0); ABG HCO3 27.5 mmol/L (21.0-28.0); ABG OXYGEN SATURATION 94.5 % (95.0-99.0); ABG PCO2 48 mmHg (32-45)
[2020-07-14] MEDS ORDERED: ALBUMIN (HUMAN) 25% 100 ML IV PRN (19:30)
[2020-07-14] MEDS ORDERED: NOREPINEPHRIN 4MG/NS 250ML 250 ML IV STA (19:33)
[2020-07-14] MEDS ORDERED: NOREPINEPHRIN 4MG/NS 250ML 250 ML IV SCH (20:00)
[2020-07-14] MEDS: ROPINIROLE HCL 0.25 MG TABLET PO SCH (21:00)
[2020-07-15] VITALS (27 sets, daily range): BP systolic 83–165; BP diastolic 35–88
[2020-07-15 04:09] LABS: HEPATITIS A ANTIBODY IGM Negative (Negative); HEPATITIS B CORE IGM Negative (Negative); HEPATITIS Bs ANTIGEN SCREEN P Negative (Negative)
[2020-07-15] MEDS: IBUPROFEN 400 MG TABLET PO SCH ×4 (04:30→22:26)
[2020-07-15] MEDS: INSULIN HUMULIN R 100 UNIT/ML 3ML SQ SCH ×4 (05:35→20:26)
[2020-07-15] MEDS: METOCLOPRAMIDE 5 MG TABLET PO SCH ×5 (07:30→20:20)
[2020-07-15] MEDS: VITAMIN E MIXED PO SCH (08:32)
[2020-07-15] MEDS: ISOSORBIDE MONO 30MG SR TAB PO SCH (08:44)
[2020-07-15] MEDS: Vitamin B Complex/Vit C/Folic Acid PO SCH (08:51)
[2020-07-15] MEDS: CALCIUM AC 667MG CAP PO SCH ×3 (08:51→16:39)
[2020-07-15] MEDS: PANTOPRAZOLE 40 MG TAB DR PO SCH (08:51)
[2020-07-15] MEDS: ENOXAPARIN SODIUM 120 MG/0.8ML SQ SCH (08:52)
[2020-07-15] MEDS ORDERED: IBUPROFEN 200 MG TAB ONE (10:58)
[2020-07-15] MEDS: CEFTRIAXONE 1G VIAL IVP SCH (11:40)
[2020-07-15] MEDS: VANCOMYCIN 1G 1.75 GM in 0.9% NACL 250ML 250 ML IV SCH ×2 (13:28→17:36)
[2020-07-15] MEDS: LEVOFLOXACIN 500 MG/D5W 100 ML 100 ML IV SCH (20:29)
[2020-07-15] MEDS: ROPINIROLE HCL 0.25 MG TABLET PO SCH (20:29)
[2020-07-15] MEDS: TEMAZEPAM 15 MG CAPSULE PO PRN (23:42)
[2020-07-16] VITALS (11 sets, daily range): BP systolic 105–156; BP diastolic 41–66
[2020-07-16 04:03] LABS: HEMATOCRIT 28.2 % (36-48); MEAN CORPUSCULAR HEMOGLOBIN 27.5 pg (27.0-33.0); MEAN CORPUSCULAR HGB CONC 30.5 g/dL (32.0-36.0); MEAN CORPUSCULAR VOLUME 90.1 fL (79-99); NUCLEATED RED BLOOD CELLS 0.2 % (0.0-0.19); PLATELET COUNT (AUTO) 139 K/uL (130-400); RED BLOOD CELL COUNT(AUTO) 3.13 MIL/uL (4.00-5.50); RED CELL DISTRIBUTION WIDTH 17.2 % (11.0-15.5); WHITE BLOOD COUNT (AUTO) 14.3 K/uL (4.8-10.8)
[2020-07-16 04:19] LABS: ALBUMIN 2.2 g/dL (3.5-5.0); BILIRUBIN,TOTAL 0.4 mg/dL (0.2-1.0); CREATININE 5.1 mg/dL (0.5-1.5); POTASSIUM 3.9 mmol/L (3.5-5.1); TOTAL PROTEIN, SERUM 6.6 g/dL (6.0-8.3)
[2020-07-16] MEDS: IBUPROFEN 400 MG TABLET PO SCH ×4 (04:42→20:44)
[2020-07-16] MEDS: METOCLOPRAMIDE 5 MG TABLET PO SCH ×4 (07:30→20:43)
[2020-07-16] MEDS: INSULIN HUMULIN R 100 UNIT/ML 3ML SQ SCH ×4 (07:30→20:50)
[2020-07-16 08:44] LABS: BASOPHILS % (AUTO) 0.5 % (0.0-5.0); EOSINOPHILS % (AUTO) 2.8 % (0.0-8.0); LYMPHOCYTES % (AUTO) 7.6 % (21.0-51.0); MONOCYTES % (AUTO) 10.9 % (3.0-13.0); NEUTROPHILS % (AUTO) 76.8 % (40.0-77.0)
[2020-07-16] MEDS: ENOXAPARIN SODIUM 120 MG/0.8ML SQ SCH (09:28)
[2020-07-16] MEDS: PANTOPRAZOLE 40 MG TAB DR PO SCH (09:29)
[2020-07-16] MEDS: Vitamin B Complex/Vit C/Folic Acid PO SCH (09:35)
[2020-07-16] MEDS: METOPROLOL TARTRATE 25 MG TAB PO SCH ×2 (09:35→20:44)
[2020-07-16] MEDS: CALCIUM AC 667MG CAP PO SCH ×3 (09:37→16:57)
[2020-07-16] MEDS: VITAMIN E MIXED PO SCH (09:46)
[2020-07-16] MEDS: CEFTRIAXONE 1G VIAL IVP SCH (13:02)
[2020-07-16] MEDS: ROPINIROLE HCL 0.25 MG TABLET PO SCH (20:43)
[2020-07-17 00:06] VITALS: BP 131/51
[2020-07-17 03:53] VITALS: BP 105/45
[2020-07-17] MEDS: METOCLOPRAMIDE 5 MG TABLET PO SCH ×2 (04:08→11:30)
[2020-07-17] MEDS: IBUPROFEN 400 MG TABLET PO SCH ×4 (04:09→21:22)
[2020-07-17 04:29] LABS: HEMATOCRIT 28.9 % (36-48); MEAN CORPUSCULAR HEMOGLOBIN 26.8 pg (27.0-33.0); MEAN CORPUSCULAR HGB CONC 30.1 g/dL (32.0-36.0); MEAN CORPUSCULAR VOLUME 88.9 fL (79-99); RED BLOOD CELL COUNT(AUTO) 3.25 MIL/uL (4.00-5.50); RED CELL DISTRIBUTION WIDTH 17.2 % (11.0-15.5); WHITE BLOOD COUNT (AUTO) 16.2 K/uL (4.8-10.8)
[2020-07-17 04:55] LABS: ALBUMIN 2.2 g/dL (3.5-5.0); BILIRUBIN,TOTAL 0.3 mg/dL (0.2-1.0); CREATININE 6.6 mg/dL (0.5-1.5); TOTAL PROTEIN, SERUM 6.6 g/dL (6.0-8.3)
[2020-07-17] MEDS: INSULIN HUMULIN R 100 UNIT/ML 3ML SQ SCH ×4 (06:32→21:35)
[2020-07-17 08:00] VITALS: BP 123/49
[2020-07-17] MEDS: CALCIUM AC 667MG CAP PO SCH ×3 (08:36→17:45)
[2020-07-17] MEDS: Vitamin B Complex/Vit C/Folic Acid PO SCH (08:36)
[2020-07-17] MEDS: PANTOPRAZOLE 40 MG TAB DR PO SCH (08:36)
[2020-07-17] MEDS: VITAMIN E MIXED PO SCH (09:00)
[2020-07-17] MEDS: METOPROLOL TARTRATE 50 MG TAB PO SCH ×2 (09:56→21:22)
[2020-07-17] MEDS: ENOXAPARIN SODIUM 120 MG/0.8ML SQ SCH (10:06)
[2020-07-17 11:53] VITALS: BP 96/60
[2020-07-17] MEDS ORDERED: EPOETIN ALFA-EPBX (ESRD) 10,000 UNIT/ML VIAL SQ SCH (12:30)
[2020-07-17] MEDS: CEFTRIAXONE 1G VIAL IVP SCH (12:54)
[2020-07-17] MEDS: VANCOMYCIN 1G 1.75 GM in 0.9% NACL 250ML 250 ML IV SCH (14:22)
[2020-07-17 16:00] VITALS: BP 105/30
[2020-07-17 20:35] VITALS: BP 138/55
[2020-07-17] MEDS: ROPINIROLE HCL 0.25 MG TABLET PO SCH (21:22)
[2020-07-17] MEDS: LEVOFLOXACIN 500 MG/D5W 100 ML 100 ML IV SCH (21:22)
[2020-07-17] MEDS: TEMAZEPAM 15 MG CAPSULE PO PRN (22:45)
[2020-07-18] VITALS (8 sets, daily range): BP systolic 129–158; BP diastolic 39–67
[2020-07-18] MEDS: IBUPROFEN 400 MG TABLET PO SCH (04:33)
[2020-07-18 05:04] LABS: BASOPHILS % (AUTO) 0.6 % (0.0-5.0); EOSINOPHILS % (AUTO) 3.1 % (0.0-8.0); HEMATOCRIT 29.9 % (36-48); LYMPHOCYTES % (AUTO) 7.7 % (21.0-51.0); MEAN CORPUSCULAR HEMOGLOBIN 26.7 pg (27.0-33.0); MEAN CORPUSCULAR HGB CONC 29.8 g/dL (32.0-36.0); MEAN CORPUSCULAR VOLUME 89.8 fL (79-99); MONOCYTES % (AUTO) 11.5 % (3.0-13.0); NEUTROPHILS % (AUTO) 74.4 % (40.0-77.0); PLATELET COUNT (AUTO) 182 K/uL (130-400); RED BLOOD CELL COUNT(AUTO) 3.33 MIL/uL (4.00-5.50); RED CELL DISTRIBUTION WIDTH 17.5 % (11.0-15.5)
[2020-07-18 05:27] LABS: ALBUMIN 2.2 g/dL (3.5-5.0); BILIRUBIN,TOTAL 0.3 mg/dL (0.2-1.0); PHOSPHORUS 3.5 mg/dL (2.5-4.9); POTASSIUM 4.1 mmol/L (3.5-5.1); TOTAL PROTEIN, SERUM 6.7 g/dL (6.0-8.3)
[2020-07-18] MEDS: INSULIN HUMULIN R 100 UNIT/ML 3ML SQ SCH ×4 (05:41→21:00)
[2020-07-18] MEDS: CALCIUM AC 667MG CAP PO SCH ×3 (08:00→17:13)
[2020-07-18] MEDS: VITAMIN E MIXED PO SCH (09:00)
[2020-07-18] MEDS: METOPROLOL TARTRATE 50 MG TAB PO SCH ×2 (09:33→21:47)
[2020-07-18] MEDS: PANTOPRAZOLE 40 MG TAB DR PO SCH (09:33)
[2020-07-18] MEDS: Vitamin B Complex/Vit C/Folic Acid PO SCH (09:34)
[2020-07-18] MEDS: ZINC OXIDE OINT 56.7 GM TP SCH (10:50)
[2020-07-18] MEDS: TERBINAFINE HCL 15 GM TUBE TP SCH (10:51)
[2020-07-18] MEDS: CEFTRIAXONE 1G VIAL IVP SCH (11:40)
[2020-07-18] MEDS: LOPERAMIDE HCL 2 MG CAP PO PRN (13:14)
[2020-07-18] MEDS: FLUCONAZOLE 100 MG TAB PO SCH (14:45)
[2020-07-18] MEDS: ACETAMINOPHEN 325 MG TAB PO PRN (17:14)
[2020-07-18] MEDS: ROPINIROLE HCL 0.25 MG TABLET PO SCH (21:47)
[2020-07-19] MEDS: LOPERAMIDE HCL 2 MG CAP PO PRN (03:37)
[2020-07-19 03:38] VITALS: BP 161/65
[2020-07-19] MEDS: INSULIN HUMULIN R 100 UNIT/ML 3ML SQ SCH ×4 (05:58→20:16)
[2020-07-19 06:34] LABS: HEMATOCRIT 31.7 % (36-48); MEAN CORPUSCULAR HEMOGLOBIN 27.2 pg (27.0-33.0); MEAN CORPUSCULAR HGB CONC 30.6 g/dL (32.0-36.0); MEAN CORPUSCULAR VOLUME 88.8 fL (79-99); RED BLOOD CELL COUNT(AUTO) 3.57 MIL/uL (4.00-5.50); RED CELL DISTRIBUTION WIDTH 17.5 % (11.0-15.5); WHITE BLOOD COUNT (AUTO) 17.9 K/uL (4.8-10.8)
[2020-07-19 07:00] VITALS: BP 158/50
[2020-07-19 07:14] LABS: CREATININE 6.5 mg/dL (0.5-1.5); PHOSPHORUS 4.4 mg/dL (2.5-4.9); POTASSIUM 4.6 mmol/L (3.5-5.1)
[2020-07-19] MEDS ORDERED: FLUCONAZOLE 100 MG TAB PO SCH (09:00)
[2020-07-19] MEDS: VITAMIN E MIXED PO SCH (09:00)
[2020-07-19 11:00] VITALS: BP 159/50
[2020-07-19] MEDS: TERBINAFINE HCL 15 GM TUBE TP SCH (13:00)
[2020-07-19] MEDS: VANCOMYCIN 1G 1.75 GM in 0.9% NACL 250ML 250 ML IV SCH (13:28)
[2020-07-19] MEDS ORDERED: 0.9%NACL 10ML VIAL ONE (14:24)
[2020-07-19] MEDS: FLUCONAZOLE 100 MG TAB PO SCH (14:25)
[2020-07-19] MEDS: PANTOPRAZOLE 40 MG TAB DR PO SCH (14:25)
[2020-07-19] MEDS: CEFTRIAXONE 1G VIAL IVP SCH (14:25)
[2020-07-19] MEDS: CALCIUM AC 667MG CAP PO SCH ×2 (14:26→17:00)
[2020-07-19] MEDS: Vitamin B Complex/Vit C/Folic Acid PO SCH (14:26)
[2020-07-19] MEDS: METOPROLOL TARTRATE 50 MG TAB PO SCH ×2 (14:27→21:21)
[2020-07-19] MEDS: ZINC OXIDE OINT 56.7 GM TP SCH (14:35)
[2020-07-19 16:00] VITALS: BP 186/63
[2020-07-19 19:03] LABS: APPEARANCE,URINE CLOUDY (CLEAR); BILIRUBIN,URINE NEGATIVE (NEGATIVE); COLOR,URINE YELLOW (YELLOW); GLUCOSE, URINE (UA) 500 mg/dL (NEGATIVE); KETONES,URINE NEGATIVE (NEGATIVE); LEUKOCYTE ESTERASE ,URINE MODERATE (NEGATIVE); NITRATE,URINE NEGATIVE (NEGATIVE); OCCULT BLOOD,URINE SMALL (NEGATIVE); PH,URINE 8.5 (5.0-8.0); PROTEIN,URINE 100 mg/dL (NEGATIVE); UROBILINOGEN,URINE 0.2 mg/dL (0.2-1.0)
[2020-07-19 19:19] LABS: BACTERIA,URINE Few /HPF (None Seen); MUCUS,URINE Moderate LPF (None Seen); SQUAMOUS EPITHELIAL CELL,UR Many /HPF (0-2); YEAST,URINE BUDDING Moderate /HPF (None Seen)
[2020-07-19 19:39] VITALS: BP 148/69
[2020-07-19] MEDS: LEVOFLOXACIN 500 MG/D5W 100 ML 100 ML IV SCH (21:20)
[2020-07-19] MEDS: ROPINIROLE HCL 0.25 MG TABLET PO SCH (21:21)
[2020-07-19 23:55] VITALS: BP 131/48
[2020-07-20 04:52] VITALS: BP 124/46
[2020-07-20 06:09] LABS: BASOPHILS % (AUTO) 0.5 % (0.0-5.0); EOSINOPHILS % (AUTO) 2.3 % (0.0-8.0); HEMATOCRIT 30.1 % (36-48); LYMPHOCYTES % (AUTO) 7.4 % (21.0-51.0); MEAN CORPUSCULAR HEMOGLOBIN 27.1 pg (27.0-33.0); MEAN CORPUSCULAR HGB CONC 30.6 g/dL (32.0-36.0); MEAN CORPUSCULAR VOLUME 88.5 fL (79-99); MONOCYTES % (AUTO) 9.4 % (3.0-13.0); NEUTROPHILS % (AUTO) 78.1 % (40.0-77.0); NUCLEATED RED BLOOD CELLS 0.1 % (0.0-0.19); PLATELET COUNT (AUTO) 173 K/uL (130-400); RED CELL DISTRIBUTION WIDTH 17.6 % (11.0-15.5); WHITE BLOOD COUNT (AUTO) 17.4 K/uL (4.8-10.8)
[2020-07-20] MEDS: INSULIN HUMULIN R 100 UNIT/ML 3ML SQ SCH ×4 (06:23→20:54)
[2020-07-20 06:38] LABS: ALBUMIN 2.3 g/dL (3.5-5.0); BILIRUBIN,TOTAL 0.4 mg/dL (0.2-1.0); CREATININE 4.8 mg/dL (0.5-1.5); TOTAL PROTEIN, SERUM 6.9 g/dL (6.0-8.3)
[2020-07-20 07:00] VITALS: BP 144/37
[2020-07-20] MEDS: TERBINAFINE HCL 15 GM TUBE TP SCH (09:00)
[2020-07-20] MEDS: VITAMIN E MIXED PO SCH (09:00)
[2020-07-20 11:00] VITALS: BP 162/41
[2020-07-20] MEDS: PANTOPRAZOLE 40 MG TAB DR PO SCH (11:45)
[2020-07-20] MEDS: Vitamin B Complex/Vit C/Folic Acid PO SCH (11:45)
[2020-07-20] MEDS: FLUCONAZOLE 100 MG TAB PO SCH (11:45)
[2020-07-20] MEDS: ERGOCALCIFEROL (VITAMIN D2) 50,000 UNIT CAPSULE PO SCH (11:45)
[2020-07-20] MEDS: METOPROLOL TARTRATE 50 MG TAB PO SCH ×2 (11:45→20:49)
[2020-07-20] MEDS: ZINC OXIDE OINT 56.7 GM TP SCH (11:46)
[2020-07-20] MEDS: CEFTRIAXONE 1G VIAL IVP SCH (12:45)
[2020-07-20 16:00] VITALS: BP 132/70
[2020-07-20 20:49] VITALS: BP 148/47
[2020-07-20] MEDS: ROPINIROLE HCL 0.25 MG TABLET PO SCH (20:49)
[2020-07-20] MEDS: LOPERAMIDE HCL 2 MG CAP PO PRN (21:02)
[2020-07-20 23:29] VITALS: BP 135/46
[2020-07-21 03:26] VITALS: BP 152/55
[2020-07-21 06:02] LABS: BASOPHILS % (AUTO) 0.3 % (0.0-5.0); EOSINOPHILS % (AUTO) 2.2 % (0.0-8.0); LYMPHOCYTES % (AUTO) 7.7 % (21.0-51.0); MEAN CORPUSCULAR HEMOGLOBIN 26.6 pg (27.0-33.0); MEAN CORPUSCULAR VOLUME 88.7 fL (79-99); MONOCYTES % (AUTO) 8.1 % (3.0-13.0); NEUTROPHILS % (AUTO) 79.9 % (40.0-77.0); NUCLEATED RED BLOOD CELLS 0.1 % (0.0-0.19); PLATELET COUNT (AUTO) 178 K/uL (130-400); RED BLOOD CELL COUNT(AUTO) 3.27 MIL/uL (4.00-5.50); RED CELL DISTRIBUTION WIDTH 17.5 % (11.0-15.5); WHITE BLOOD COUNT (AUTO) 20.3 K/uL (4.8-10.8)
[2020-07-21 06:22] LABS: CREATININE 6.2 mg/dL (0.5-1.5); POTASSIUM 4.2 mmol/L (3.5-5.1)
[2020-07-21] MEDS: INSULIN HUMULIN R 100 UNIT/ML 3ML SQ SCH ×4 (07:30→21:48)
[2020-07-21 08:04] VITALS: BP 131/29
[2020-07-21] MEDS: VITAMIN E MIXED PO SCH (09:00)
[2020-07-21] MEDS: ZINC OXIDE OINT 56.7 GM TP SCH (09:00)
[2020-07-21] MEDS: TERBINAFINE HCL 15 GM TUBE TP SCH (09:00)
[2020-07-21] MEDS: FLUCONAZOLE 100 MG TAB PO SCH (10:27)
[2020-07-21] MEDS: PANTOPRAZOLE 40 MG TAB DR PO SCH (10:27)
[2020-07-21] MEDS: METOPROLOL TARTRATE 50 MG TAB PO SCH ×2 (10:27→21:29)
[2020-07-21] MEDS: ERGOCALCIFEROL (VITAMIN D2) 50,000 UNIT CAPSULE PO SCH (10:27)
[2020-07-21] MEDS: Vitamin B Complex/Vit C/Folic Acid PO SCH (10:28)
[2020-07-21 12:14] VITALS: BP 172/50
[2020-07-21] MEDS: NYSTATIN 15 GM POWDER TP SCH ×2 (12:45→21:30)
[2020-07-21] MEDS: CEFTRIAXONE 1G VIAL IVP SCH (13:21)
[2020-07-21 16:49] VITALS: BP 136/83
[2020-07-21] MEDS: METRONIDAZOLE 500 MG TABLET PO SCH ×2 (18:10→21:29)
[2020-07-21 19:50] VITALS: BP 153/42
[2020-07-21] MEDS: TEMAZEPAM 15 MG CAPSULE PO PRN (21:29)
[2020-07-21] MEDS: ROPINIROLE HCL 0.25 MG TABLET PO SCH (21:29)
[2020-07-21] MEDS: LOPERAMIDE HCL 2 MG CAP PO PRN (21:29)
[2020-07-22 00:06] VITALS: BP 126/40
[2020-07-22 03:50] VITALS: BP 122/40
[2020-07-22] MEDS: METRONIDAZOLE 500 MG TABLET PO SCH ×3 (04:35→21:40)
[2020-07-22 05:00] LABS: HEMATOCRIT 28.8 % (36-48); MEAN CORPUSCULAR HEMOGLOBIN 27.2 pg (27.0-33.0); MEAN CORPUSCULAR HGB CONC 30.9 g/dL (32.0-36.0); MEAN CORPUSCULAR VOLUME 88.1 fL (79-99); NUCLEATED RED BLOOD CELLS 0.1 % (0.0-0.19); PLATELET COUNT (AUTO) 192 K/uL (130-400); RED BLOOD CELL COUNT(AUTO) 3.27 MIL/uL (4.00-5.50); RED CELL DISTRIBUTION WIDTH 17.5 % (11.0-15.5); WHITE BLOOD COUNT (AUTO) 23.9 K/uL (4.8-10.8)
[2020-07-22 05:16] LABS: ALBUMIN 2.4 g/dL (3.5-5.0); BILIRUBIN,TOTAL 0.4 mg/dL (0.2-1.0); CREATININE 7.4 mg/dL (0.5-1.5); POTASSIUM 4.5 mmol/L (3.5-5.1); TOTAL PROTEIN, SERUM 6.1 g/dL (6.0-8.3)
[2020-07-22 06:19] LABS: BASOPHILS % (MANUAL) 1 % (0-2); EOSINOPHILS % (MANUAL) 1 % (1-6); LYMPHOCYTES % (MANUAL) 4 % (22-44); MAN.DIFF COMMENT-IMPRESSION MANUAL DIFFERENTIAL; MONOCYTES % (MANUAL) 2 % (2-9); PLATELET MORPHOLOGY COMMENT ADEQUATE; SEGMENTED NEUTROPHILS % 92 % (40-70)
[2020-07-22] MEDS: INSULIN HUMULIN R 100 UNIT/ML 3ML SQ SCH ×4 (06:36→21:00)
[2020-07-22 07:30] VITALS: BP 152/54
[2020-07-22] MEDS: CALCIUM AC 667MG CAP PO SCH ×3 (08:00→17:00)
[2020-07-22] MEDS: METOPROLOL TARTRATE 50 MG TAB PO SCH ×2 (09:00→21:40)
[2020-07-22] MEDS: TERBINAFINE HCL 15 GM TUBE TP SCH (09:00)
[2020-07-22] MEDS: ZINC OXIDE OINT 56.7 GM TP SCH (09:00)
[2020-07-22] MEDS: VITAMIN E MIXED PO SCH (09:00)
[2020-07-22] MEDS: NYSTATIN 15 GM POWDER TP SCH ×2 (09:00→21:40)
[2020-07-22 11:00] VITALS: BP 140/30
[2020-07-22] MEDS: PANTOPRAZOLE 40 MG TAB DR PO SCH (12:38)
[2020-07-22] MEDS: Vitamin B Complex/Vit C/Folic Acid PO SCH (12:38)
[2020-07-22] MEDS: CEFTRIAXONE 1G VIAL IVP SCH (13:10)
[2020-07-22] MEDS ORDERED: MAGNESIUM CITRATE 296 ML SOLUTION PO SCH (14:45)
[2020-07-22] MEDS ORDERED: PEG 3350/NA SULF,BICARB,CL/KCL 4000 ML SOLN PO SCH (15:00)
[2020-07-22 16:00] VITALS: BP 125/72
[2020-07-22] MEDS: FLUCONAZOLE 200 MG/NS 100 ML 100 ML IV SCH (18:32)
[2020-07-22 20:04] VITALS: BP 137/47
[2020-07-22] MEDS: ROPINIROLE HCL 0.25 MG TABLET PO SCH (21:40)
[2020-07-23] VITALS (24 sets, daily range): BP systolic 100–146; BP diastolic 33–66
[2020-07-23] MEDS: METRONIDAZOLE 500 MG TABLET PO SCH (04:53)
[2020-07-23] MEDS: INSULIN HUMULIN R 100 UNIT/ML 3ML SQ SCH ×4 (06:16→21:00)
[2020-07-23 07:00] LABS: HEMATOCRIT 31.3 % (36-48); MEAN CORPUSCULAR HEMOGLOBIN 27.1 pg (27.0-33.0); MEAN CORPUSCULAR HGB CONC 30.4 g/dL (32.0-36.0); MEAN CORPUSCULAR VOLUME 89.2 fL (79-99); RED BLOOD CELL COUNT(AUTO) 3.51 MIL/uL (4.00-5.50); RED CELL DISTRIBUTION WIDTH 17.6 % (11.0-15.5); WHITE BLOOD COUNT (AUTO) 27.8 K/uL (4.8-10.8)
[2020-07-23 07:28] LABS: CREATININE 5.6 mg/dL (0.5-1.5); POTASSIUM 3.9 mmol/L (3.5-5.1)
[2020-07-23] MEDS: CALCIUM AC 667MG CAP PO SCH ×3 (08:00→17:45)
[2020-07-23 08:32] LABS: INR 1.24 (0.85-1.15)
[2020-07-23 08:34] LABS: PARTIAL THROMBOPLASTIN TIME 30.9 SEC (26.3-35.5)
[2020-07-23] MEDS: VITAMIN E MIXED PO SCH (09:00)
[2020-07-23] MEDS: METOPROLOL TARTRATE 50 MG TAB PO SCH ×2 (11:04→20:43)
[2020-07-23] MEDS: FLUCONAZOLE 200 MG/NS 100 ML 100 ML IV SCH (11:04)
[2020-07-23] MEDS ORDERED: MEROPENEM 500 MG VIAL IVP SCH (11:30)
[2020-07-23] MEDS: NYSTATIN 15 GM POWDER TP SCH ×2 (11:33→21:00)
[2020-07-23] MEDS: TERBINAFINE HCL 15 GM TUBE TP SCH ×2 (11:33→15:21)
[2020-07-23] MEDS: ZINC OXIDE OINT 56.7 GM TP SCH (11:33)
[2020-07-23] MEDS ORDERED: SUCCINYLCHOLINE 200MG/10ML SYR ONE (11:45)
[2020-07-23] MEDS ORDERED: PROPOFOL 10 MG/ML 20ML VIAL IV ONE (11:46)
[2020-07-23] MEDS ORDERED: LIDOCAINE HCL 1% 20 ML VIAL ONE (11:47)
[2020-07-23] MEDS ORDERED: PHENYLEPHRINE HCL 10 MG/ML 1ML VIAL IV ONE (11:47)
[2020-07-23] MEDS ORDERED: EPHEDRINE SULFATE 50 MG/ML AMPULE ONE (12:26)
[2020-07-23] MEDS ORDERED: CEFTRIAXONE 1G VIAL IVP SCH (12:30)
[2020-07-23] MEDS: PANTOPRAZOLE 40 MG TAB DR PO SCH (13:48)
[2020-07-23] MEDS: Vitamin B Complex/Vit C/Folic Acid PO SCH (13:48)
[2020-07-23 15:11] LABS: APPEARANCE,URINE Cloudy (CLEAR); BILIRUBIN,URINE Negative (NEGATIVE); COLOR,URINE Yellow (YELLOW); GLUCOSE, URINE (UA) TRACE mg/dL (NEGATIVE); KETONES,URINE Trace mg/dL (NEGATIVE); LEUKOCYTE ESTERASE ,URINE Small (NEGATIVE); NITRATE,URINE Negative (NEGATIVE); OCCULT BLOOD,URINE Trace (NEGATIVE); PH,URINE 7.5 (5.0-8.0); PROTEIN,URINE 300 mg/dL (NEGATIVE); UROBILINOGEN,URINE 0.2 mg/dL (0.2-1.0)
[2020-07-23] MEDS: DiphenhydrAMINE HCL 50 MG/ML VIAL IV PRN (15:22)
[2020-07-23 16:06] LABS: SQUAMOUS EPITHELIAL CELL,UR 30-50 /HPF (0-2)
[2020-07-23 16:07] LABS: FINE GRANULAR CASTS,URINE 0-2 /LPF (None Seen)
[2020-07-23 16:08] LABS: HYALINE CASTS, URINE 0-1 /LPF (0-1 /LPF)
[2020-07-23 16:10] LABS: BACTERIA,URINE Few /HPF (None Seen)
[2020-07-23 16:11] LABS: MUCUS,URINE Rare LPF (None Seen)
[2020-07-23] MEDS ORDERED: FUROSEMIDE 40MG VIAL ONE (16:37)
[2020-07-23] MEDS: SOLU-MEDROL 125MG VIAL IVP SCH (20:42)
[2020-07-23] MEDS: ROPINIROLE HCL 0.25 MG TABLET PO SCH (20:43)
[2020-07-23] MEDS: CLOTRIMAZOLE 30 GM CREAM.GM. TP SCH (21:00)
[2020-07-24 03:41] VITALS: BP 129/47
[2020-07-24 06:06] LABS: BASOPHILS % (AUTO) 0.3 % (0.0-5.0); HEMATOCRIT 32.1 % (36-48); LYMPHOCYTES % (AUTO) 3.5 % (21.0-51.0); MEAN CORPUSCULAR HEMOGLOBIN 26.9 pg (27.0-33.0); MEAN CORPUSCULAR HGB CONC 29.9 g/dL (32.0-36.0); MEAN CORPUSCULAR VOLUME 89.9 fL (79-99); MONOCYTES % (AUTO) 0.8 % (3.0-13.0); NEUTROPHILS % (AUTO) 94.2 % (40.0-77.0); PLATELET COUNT (AUTO) 191 K/uL (130-400); RED BLOOD CELL COUNT(AUTO) 3.57 MIL/uL (4.00-5.50); RED CELL DISTRIBUTION WIDTH 17.4 % (11.0-15.5)
[2020-07-24 06:19] LABS: ALBUMIN 2.4 g/dL (3.5-5.0); BILIRUBIN,TOTAL 0.4 mg/dL (0.2-1.0); CREATININE 6.8 mg/dL (0.5-1.5); POTASSIUM 5.1 mmol/L (3.5-5.1); TOTAL PROTEIN, SERUM 6.8 g/dL (6.0-8.3)
[2020-07-24] MEDS: INSULIN HUMULIN R 100 UNIT/ML 3ML SQ SCH ×4 (07:00→20:29)
[2020-07-24] MEDS: CALCIUM AC 667MG CAP PO SCH ×3 (08:00→17:44)
[2020-07-24 08:02] VITALS: BP 125/50
[2020-07-24 08:42] LABS: BAND NEUTROPHILS % (MANUAL) 1 % (0-2); LYMPHOCYTES % (MANUAL) 3 % (22-44); REACTIVE LYMPHOCYTES 1 % (0-0); SEGMENTED NEUTROPHILS % 95 % (40-70)
[2020-07-24 08:43] LABS: MAN.DIFF COMMENT-IMPRESSION MANUAL DIFFERENTIAL; PLATELET MORPHOLOGY COMMENT ADEQUATE
[2020-07-24] MEDS: METOPROLOL TARTRATE 50 MG TAB PO SCH ×2 (09:00→20:19)
[2020-07-24] MEDS: VITAMIN E MIXED PO SCH (09:00)
[2020-07-24] MEDS: CLOTRIMAZOLE 30 GM CREAM.GM. TP SCH (09:49)
[2020-07-24] MEDS: NYSTATIN 15 GM POWDER TP SCH (09:50)
[2020-07-24] MEDS: ZINC OXIDE OINT 56.7 GM TP SCH (09:52)
[2020-07-24] MEDS: TERBINAFINE HCL 15 GM TUBE TP SCH (09:52)
[2020-07-24] MEDS: SOLU-MEDROL 125MG VIAL IVP SCH ×2 (09:53→20:19)
[2020-07-24] MEDS: Vitamin B Complex/Vit C/Folic Acid PO SCH (09:54)
[2020-07-24] MEDS: PANTOPRAZOLE 40 MG TAB DR PO SCH (09:54)
[2020-07-24] MEDS: ACETAMINOPHEN 325 MG TAB PO PRN (09:56)
[2020-07-24 11:47] VITALS: BP 114/86
[2020-07-24 16:09] VITALS: BP 147/43
[2020-07-24 19:59] VITALS: BP 138/47
[2020-07-24] MEDS: ROPINIROLE HCL 0.25 MG TABLET PO SCH (20:19)
[2020-07-24] MEDS: CLOTRIMAZOLE/BETAMETHASONE DIP 45 GM CREAM.GM. TP SCH (20:20)
[2020-07-24 23:39] VITALS: BP 155/49
[2020-07-25 04:02] VITALS: BP 133/58
[2020-07-25 04:16] LABS: HEMATOCRIT 28.7 % (36-48); MEAN CORPUSCULAR HEMOGLOBIN 27.3 pg (27.0-33.0); PLATELET COUNT (AUTO) 202 K/uL (130-400); RED BLOOD CELL COUNT(AUTO) 3.26 MIL/uL (4.00-5.50); RED CELL DISTRIBUTION WIDTH 17.2 % (11.0-15.5); WHITE BLOOD COUNT (AUTO) 20.7 K/uL (4.8-10.8)
[2020-07-25 04:36] LABS: ALBUMIN 2.5 g/dL (3.5-5.0); BILIRUBIN,TOTAL 0.4 mg/dL (0.2-1.0); CREATININE 4.7 mg/dL (0.5-1.5); POTASSIUM 3.9 mmol/L (3.5-5.1); TOTAL PROTEIN, SERUM 6.7 g/dL (6.0-8.3)
[2020-07-25 04:51] LABS: BAND NEUTROPHILS % (MANUAL) 9 % (0-2); LYMPHOCYTES % (MANUAL) 5 % (22-44); MAN.DIFF COMMENT-IMPRESSION MANUAL DIFFERENTIAL; PLATELET MORPHOLOGY COMMENT ADEQUATE; SEGMENTED NEUTROPHILS % 86 % (40-70)
[2020-07-25] MEDS: INSULIN HUMULIN R 100 UNIT/ML 3ML SQ SCH ×4 (06:00→21:29)
[2020-07-25 08:00] VITALS: BP 144/43
[2020-07-25] MEDS: CALCIUM AC 667MG CAP PO SCH ×3 (08:00→17:00)
[2020-07-25] MEDS: PANTOPRAZOLE 40 MG TAB DR PO SCH (08:26)
[2020-07-25] MEDS: METOPROLOL TARTRATE 50 MG TAB PO SCH ×2 (08:27→21:16)
[2020-07-25] MEDS: Vitamin B Complex/Vit C/Folic Acid PO SCH (08:27)
[2020-07-25] MEDS: SOLU-MEDROL 125MG VIAL IVP SCH ×2 (08:30→21:17)
[2020-07-25] MEDS: VITAMIN E MIXED PO SCH (08:30)
[2020-07-25] MEDS: CLOTRIMAZOLE/BETAMETHASONE DIP 45 GM CREAM.GM. TP SCH ×2 (08:30→21:19)
[2020-07-25 12:00] VITALS: BP 141/43
[2020-07-25 16:00] VITALS: BP 148/54
[2020-07-25 20:20] VITALS: BP 152/54
[2020-07-25] MEDS: DiphenhydrAMINE HCL 50 MG/ML VIAL IV PRN (21:12)
[2020-07-25] MEDS: ROPINIROLE HCL 0.25 MG TABLET PO SCH (21:16)
[2020-07-26] MEDS: INSULIN HUMULIN R 100 UNIT/ML 3ML SQ SCH ×5 (00:03→20:43)
[2020-07-26 00:24] VITALS: BP 156/52
[2020-07-26 04:28] VITALS: BP 138/49
[2020-07-26 06:56] LABS: HEMATOCRIT 28.9 % (36-48); MEAN CORPUSCULAR HEMOGLOBIN 26.5 pg (27.0-33.0); MEAN CORPUSCULAR HGB CONC 30.1 g/dL (32.0-36.0); MEAN CORPUSCULAR VOLUME 88.1 fL (79-99); PLATELET COUNT (AUTO) 198 K/uL (130-400); RED BLOOD CELL COUNT(AUTO) 3.28 MIL/uL (4.00-5.50); RED CELL DISTRIBUTION WIDTH 17.3 % (11.0-15.5); WHITE BLOOD COUNT (AUTO) 17.4 K/uL (4.8-10.8)
[2020-07-26 07:40] LABS: ALBUMIN 2.6 g/dL (3.5-5.0); BILIRUBIN,TOTAL 0.4 mg/dL (0.2-1.0); CREATININE 6.2 mg/dL (0.5-1.5); TOTAL PROTEIN, SERUM 6.5 g/dL (6.0-8.3)
[2020-07-26 08:00] VITALS: BP 147/53
[2020-07-26 08:19] LABS: LYMPHOCYTES % (MANUAL) 3 % (22-44); MAN.DIFF COMMENT-IMPRESSION MANUAL DIFFERENTIAL; MONOCYTES % (MANUAL) 2 % (2-9); SEGMENTED NEUTROPHILS % 95 % (40-70)
[2020-07-26 08:21] LABS: PLATELET MORPHOLOGY COMMENT ADEQUATE
[2020-07-26] MEDS: CLOTRIMAZOLE/BETAMETHASONE DIP 45 GM CREAM.GM. TP SCH ×2 (09:00→20:10)
[2020-07-26] MEDS: VITAMIN E MIXED PO SCH (09:00)
[2020-07-26] MEDS: METOPROLOL TARTRATE 50 MG TAB PO SCH ×2 (09:00→20:10)
[2020-07-26 11:00] VITALS: BP_SYST 119; BP_SYST 138; BP_DIAS 53; BP_DIAS 76
[2020-07-26] MEDS: PANTOPRAZOLE 40 MG TAB DR PO SCH (11:38)
[2020-07-26] MEDS: CALCIUM AC 667MG CAP PO SCH ×3 (11:43→17:24)
[2020-07-26] MEDS: Vitamin B Complex/Vit C/Folic Acid PO SCH (11:46)
[2020-07-26] MEDS: AZTREONAM 1 GM VIAL IVP SCH (14:49)
[2020-07-26] MEDS ORDERED: LOPERAMIDE HCL 2 MG CAP PO SCH (15:30)
[2020-07-26 16:00] VITALS: BP 164/51
[2020-07-26] MEDS: ROPINIROLE HCL 0.25 MG TABLET PO SCH (20:10)
[2020-07-26 20:24] VITALS: BP 156/55
[2020-07-27 00:28] VITALS: BP 135/50
[2020-07-27 04:28] VITALS: BP 143/54
[2020-07-27] MEDS: INSULIN HUMULIN R 100 UNIT/ML 3ML SQ SCH ×4 (05:40→21:59)
[2020-07-27 06:07] LABS: HEMATOCRIT 29.2 % (36-48); MEAN CORPUSCULAR HEMOGLOBIN 27.3 pg (27.0-33.0); MEAN CORPUSCULAR HGB CONC 30.5 g/dL (32.0-36.0); MEAN CORPUSCULAR VOLUME 89.6 fL (79-99); RED BLOOD CELL COUNT(AUTO) 3.26 MIL/uL (4.00-5.50); RED CELL DISTRIBUTION WIDTH 17.3 % (11.0-15.5); WHITE BLOOD COUNT (AUTO) 14.8 K/uL (4.8-10.8)
[2020-07-27 06:24] LABS: CREATININE 4.7 mg/dL (0.5-1.5); MAGNESIUM 1.9 mg/dL (1.80-2.40); POTASSIUM 3.9 mmol/L (3.5-5.1)
[2020-07-27 08:54] VITALS: BP 132/77
[2020-07-27] MEDS: VITAMIN E MIXED PO SCH (09:00)
[2020-07-27] MEDS: CALCIUM AC 667MG CAP PO SCH ×3 (10:20→17:59)
[2020-07-27] MEDS: Vitamin B Complex/Vit C/Folic Acid PO SCH (10:20)
[2020-07-27] MEDS: METOPROLOL TARTRATE 50 MG TAB PO SCH ×2 (10:20→19:41)
[2020-07-27] MEDS: PANTOPRAZOLE 40 MG TAB DR PO SCH (10:20)
[2020-07-27] MEDS: ERGOCALCIFEROL (VITAMIN D2) 50,000 UNIT CAPSULE PO SCH (10:20)
[2020-07-27] MEDS: CLOTRIMAZOLE/BETAMETHASONE DIP 45 GM CREAM.GM. TP SCH ×2 (10:21→19:42)
[2020-07-27 12:33] VITALS: BP 140/71
[2020-07-27] MEDS: AZTREONAM 1 GM VIAL IVP SCH (13:50)
[2020-07-27 16:28] VITALS: BP 144/82
[2020-07-27] MEDS: ROPINIROLE HCL 0.25 MG TABLET PO SCH (19:41)
[2020-07-27 20:16] VITALS: BP 150/50
[2020-07-27] MEDS: LOPERAMIDE HCL 2 MG CAP PO PRN (22:03)
[2020-07-28] VITALS (7 sets, daily range): BP systolic 128–173; BP diastolic 44–83
[2020-07-28] MEDS: INSULIN HUMULIN R 100 UNIT/ML 3ML SQ SCH ×5 (05:29→21:01)
[2020-07-28] MEDS: CALCIUM AC 667MG CAP PO SCH ×3 (06:23→16:38)
[2020-07-28] MEDS: VITAMIN E MIXED PO SCH (09:00)
[2020-07-28] MEDS: Vitamin B Complex/Vit C/Folic Acid PO SCH (10:59)
[2020-07-28] MEDS: METOPROLOL TARTRATE 50 MG TAB PO SCH ×2 (10:59→20:58)
[2020-07-28] MEDS: PANTOPRAZOLE 40 MG TAB DR PO SCH (10:59)
[2020-07-28] MEDS: CLOTRIMAZOLE/BETAMETHASONE DIP 45 GM CREAM.GM. TP SCH ×2 (11:56→20:58)
[2020-07-28 12:35] LABS: HEMATOCRIT 30.7 % (36-48); MEAN CORPUSCULAR HEMOGLOBIN 27.5 pg (27.0-33.0); MEAN CORPUSCULAR HGB CONC 31.3 g/dL (32.0-36.0); PLATELET COUNT (AUTO) 185 K/uL (130-400); RED BLOOD CELL COUNT(AUTO) 3.49 MIL/uL (4.00-5.50); RED CELL DISTRIBUTION WIDTH 17.5 % (11.0-15.5); WHITE BLOOD COUNT (AUTO) 18.6 K/uL (4.8-10.8)
[2020-07-28] MEDS: AZTREONAM 1 GM VIAL IVP SCH (13:20)
[2020-07-28 13:57] LABS: EOSINOPHILS % (MANUAL) 3 % (1-6); LYMPHOCYTES % (MANUAL) 6 % (22-44); MONOCYTES % (MANUAL) 7 % (2-9); SEGMENTED NEUTROPHILS % 84 % (40-70)
[2020-07-28 13:58] LABS: MAN.DIFF COMMENT-IMPRESSION MANUAL DIFFERENTIAL; PLATELET MORPHOLOGY COMMENT ADEQUATE
[2020-07-28] MEDS: ROPINIROLE HCL 0.25 MG TABLET PO SCH (20:58)
[2020-07-29 04:32] LABS: BASOPHILS % (AUTO) 0.2 % (0.0-5.0); EOSINOPHILS % (AUTO) 2.7 % (0.0-8.0); HEMATOCRIT 29.8 % (36-48); LYMPHOCYTES % (AUTO) 7.8 % (21.0-51.0); MEAN CORPUSCULAR HEMOGLOBIN 26.9 pg (27.0-33.0); MEAN CORPUSCULAR HGB CONC 30.5 g/dL (32.0-36.0); MEAN CORPUSCULAR VOLUME 88.2 fL (79-99); MONOCYTES % (AUTO) 7.5 % (3.0-13.0); NEUTROPHILS % (AUTO) 81.1 % (40.0-77.0); PLATELET COUNT (AUTO) 185 K/uL (130-400); RED BLOOD CELL COUNT(AUTO) 3.38 MIL/uL (4.00-5.50); RED CELL DISTRIBUTION WIDTH 17.3 % (11.0-15.5); WHITE BLOOD COUNT (AUTO) 17.3 K/uL (4.8-10.8)
[2020-07-29 04:49] VITALS: BP 145/49
[2020-07-29 04:49] LABS: ALBUMIN 2.4 g/dL (3.5-5.0); BILIRUBIN,TOTAL 0.5 mg/dL (0.2-1.0); MAGNESIUM 1.9 mg/dL (1.80-2.40); PHOSPHORUS 6.8 mg/dL (2.5-4.9); POTASSIUM 4.7 mmol/L (3.5-5.1); TOTAL PROTEIN, SERUM 6.4 g/dL (6.0-8.3)
[2020-07-29] MEDS ORDERED: EPOETIN ALFA-EPBX (ESRD) 10,000 UNIT/ML VIAL SQ SCH (07:15)
[2020-07-29] MEDS: INSULIN HUMULIN R 100 UNIT/ML 3ML SQ SCH ×2 (07:30→11:30)
[2020-07-29 08:15] VITALS: BP 141/47
[2020-07-29] MEDS: Vitamin B Complex/Vit C/Folic Acid PO SCH (09:33)
[2020-07-29] MEDS: ERGOCALCIFEROL (VITAMIN D2) 50,000 UNIT CAPSULE PO SCH (09:33)
[2020-07-29] MEDS: PANTOPRAZOLE 40 MG TAB DR PO SCH (09:33)
[2020-07-29] MEDS: CALCIUM AC 667MG CAP PO SCH ×2 (09:34→12:00)
[2020-07-29] MEDS: CLOTRIMAZOLE/BETAMETHASONE DIP 45 GM CREAM.GM. TP SCH (09:34)
[2020-07-29] MEDS: VITAMIN E MIXED PO SCH (09:35)
[2020-07-29] MEDS ORDERED: FLUCONAZOLE 100 MG TAB PO SCH (10:15)
[2020-07-29 11:25] VITALS: BP 118/42
[2020-07-29] MEDS: METOPROLOL TARTRATE 50 MG TAB PO SCH (13:04)
[2020-07-29] MEDS: AZTREONAM 1 GM VIAL IVP SCH (13:39)
[2020-07-29 16:42] VITALS: BP 112/56
== END 2020-07-29 19:20 | DRG 871 ==
LOC: EDH 06:46 → EDHIP 13:53 → OBSVTOIN 13:53 → 4CH 07-11 22:27 → 2DH 07-14 22:08 → 3BH 07-16 15:15
PROVIDERS: ADMIT Internal Medicine Critical Care Medicine; ATTEND Internal Medicine Critical Care Medicine
PROC: 5A1D70Z Performance of Urinary Filtration, Intermittent, Less than 6 Hours Per Day (ICD-10-PCS; 2020-07-10)
PROC: 5A1D70Z Performance of Urinary Filtration, Intermittent, Less than 6 Hours Per Day (ICD-10-PCS; 2020-07-12)
PROC: 02HV33Z Insertion of Infusion Device into Superior Vena Cava, Percutaneous Approach (ICD-10-PCS; 2020-07-14)
PROC: B548ZZA Ultrasonography of Superior Vena Cava, Guidance (ICD-10-PCS; 2020-07-14)
PROC: 5A1D70Z Performance of Urinary Filtration, Intermittent, Less than 6 Hours Per Day (ICD-10-PCS; 2020-07-15)
PROC: 5A1D70Z Performance of Urinary Filtration, Intermittent, Less than 6 Hours Per Day (ICD-10-PCS; 2020-07-17)
PROC: 0HBRXZZ Excision of Toe Nail, External Approach (ICD-10-PCS; 2020-07-18)
PROC: 0HBRXZZ Excision of Toe Nail, External Approach (ICD-10-PCS; 2020-07-18)
PROC: 0HBRXZZ Excision of Toe Nail, External Approach (ICD-10-PCS; 2020-07-18)
PROC: 0HBRXZZ Excision of Toe Nail, External Approach (ICD-10-PCS; 2020-07-18)
PROC: 0HBRXZZ Excision of Toe Nail, External Approach (ICD-10-PCS; 2020-07-18)
PROC: 0HBRXZZ Excision of Toe Nail, External Approach (ICD-10-PCS; 2020-07-18)
PROC: 0HBRXZZ Excision of Toe Nail, External Approach (ICD-10-PCS; 2020-07-18)
PROC: 0HBRXZZ Excision of Toe Nail, External Approach (ICD-10-PCS; 2020-07-18)
PROC: 0HBRXZZ Excision of Toe Nail, External Approach (ICD-10-PCS; 2020-07-18)
PROC: 0HBRXZZ Excision of Toe Nail, External Approach (ICD-10-PCS; 2020-07-18)
PROC: 5A1D70Z Performance of Urinary Filtration, Intermittent, Less than 6 Hours Per Day (ICD-10-PCS; 2020-07-19)
PROC: 5A1D70Z Performance of Urinary Filtration, Intermittent, Less than 6 Hours Per Day (ICD-10-PCS; 2020-07-22)
PROC: 0DB98ZX Excision of Duodenum, Via Natural or Artificial Opening Endoscopic, Diagnostic (ICD-10-PCS; principal; 2020-07-23)
PROC: 0DB68ZX Excision of Stomach, Via Natural or Artificial Opening Endoscopic, Diagnostic (ICD-10-PCS; 2020-07-23)
PROC: 0DB58ZX Excision of Esophagus, Via Natural or Artificial Opening Endoscopic, Diagnostic (ICD-10-PCS; 2020-07-23)
PROC: 0DBH8ZZ Excision of Cecum, Via Natural or Artificial Opening Endoscopic (ICD-10-PCS; 2020-07-23)
PROC: 0DBN8ZZ Excision of Sigmoid Colon, Via Natural or Artificial Opening Endoscopic (ICD-10-PCS; 2020-07-23)
PROC: 0DBE8ZX Excision of Large Intestine, Via Natural or Artificial Opening Endoscopic, Diagnostic (ICD-10-PCS; 2020-07-23)
PROC: 5A1D70Z Performance of Urinary Filtration, Intermittent, Less than 6 Hours Per Day (ICD-10-PCS; 2020-07-24)
PROC: 5A1D70Z Performance of Urinary Filtration, Intermittent, Less than 6 Hours Per Day (ICD-10-PCS; 2020-07-26)
PROC: 5A1D70Z Performance of Urinary Filtration, Intermittent, Less than 6 Hours Per Day (ICD-10-PCS; 2020-07-29)
DX: A41.59 Other Gram-negative sepsis (principal); N18.6 End stage renal disease; J18.9 Pneumonia, unspecified organism; R65.21 Severe sepsis with septic shock; I47.1 Supraventricular tachycardia; I12.0 Hypertensive chronic kidney disease with stage 5 chronic kidney disease or end stage renal disease; D62 Acute posthemorrhagic anemia; N13.6 Pyonephrosis; Z68.41 Body mass index [BMI] 40.0-44.9, adult; Z16.29 Resistance to other single specified antibiotic; I42.9 Cardiomyopathy, unspecified; E11.22 Type 2 diabetes mellitus with diabetic chronic kidney disease; B96.1 Klebsiella pneumoniae [K. pneumoniae] as the cause of diseases classified elsewhere; E66.01 Morbid (severe) obesity due to excess calories; B36.9 Superficial mycosis, unspecified; D63.8 Anemia in other chronic diseases classified elsewhere; B35.1 Tinea unguium; E11.51 Type 2 diabetes mellitus with diabetic peripheral angiopathy without gangrene; L84 Corns and callosities; L60.2 Onychogryphosis; Z20.822 Contact with and (suspected) exposure to COVID-19; F41.9 Anxiety disorder, unspecified; R62.7 Adult failure to thrive; N35.92 Unspecified urethral stricture, female; L97.509 Non-pressure chronic ulcer of other part of unspecified foot with unspecified severity; K57.30 Diverticulosis of large intestine without perforation or abscess without bleeding; K52.9 Noninfective gastroenteritis and colitis, unspecified; K29.80 Duodenitis without bleeding; K29.70 Gastritis, unspecified, without bleeding; I48.0 Paroxysmal atrial fibrillation; E11.319 Type 2 diabetes mellitus with unspecified diabetic retinopathy without macular edema; E11.610 Type 2 diabetes mellitus with diabetic neuropathic arthropathy; E11.621 Type 2 diabetes mellitus with foot ulcer; G47.33 Obstructive sleep apnea (adult) (pediatric); I25.10 Atherosclerotic heart disease of native coronary artery without angina pectoris; E87.70 Fluid overload, unspecified; E11.65 Type 2 diabetes mellitus with hyperglycemia; K21.00 Gastro-esophageal reflux disease with esophagitis, without bleeding; K63.5 Polyp of colon; K64.0 First degree hemorrhoids; R53.81 Other malaise; Z90.721 Acquired absence of ovaries, unilateral; Z90.710 Acquired absence of both cervix and uterus; Z87.440 Personal history of urinary (tract) infections; Z99.2 Dependence on renal dialysis; Z87.01 Personal history of pneumonia (recurrent); Z83.3 Family history of diabetes mellitus; Z79.899 Other long term (current) drug therapy; Z74.01 Bed confinement status; Z88.5 Allergy status to narcotic agent; Z88.8 Allergy status to other drugs, medicaments and biological substances
CPT/HCPCS: 36415; 36569; 36600; 43239; 45380; 45385; 71045; 74176; 76770; 78708; 80048; 80053; 80074; 80076; 80202; 81001; 82435; 82550; 82803; 82947; 82948; 83605; 83690; 83735; 83874; 84100; 84132; 84145; 84295; 84484; 85018; 85025; 85027; 85060; 85378; 85610; 85730; 86140; 86677; 87040; 87046; 87077; 87088; 87186; 87324; 87426; 87507; 88305; 88342; 90732; 90935; 93005; 93306; 93356; 93970; 97039; A4606; A9562; C1894; G0378; J0330; J0696; J1200; J1450; J1650; J1815; J1940; J1956; J2370; J2405; J2543; J2704; J2930; J3370; J3490; J7030; J7040; J7050; P9046; U0003

== ENCOUNTER 2021-04-30 14:01 | Inpatient (IN) | payer OTHER ==
[2021-04-30] VITALS (15 sets, daily range): BP systolic 93–209; BP diastolic 48–133
[~2021-04-30] VITALS: Ht 165.1 cm; Wt 98.6 kg
[2021-04-30 14:27] LABS: EOSINOPHILS % (AUTO) 2.8 % (0.0-8.0); HEMATOCRIT 41.4 % (36-48); LYMPHOCYTES % (AUTO) 15.3 % (21.0-51.0); MEAN CORPUSCULAR HEMOGLOBIN 27.4 pg (27.0-33.0); MEAN CORPUSCULAR HGB CONC 30.2 g/dL (32.0-36.0); MEAN CORPUSCULAR VOLUME 90.8 fL (79-99); MONOCYTES % (AUTO) 9.1 % (3.0-13.0); NEUTROPHILS % (AUTO) 71.5 % (40.0-77.0); PLATELET COUNT (AUTO) 151 K/uL (130-400); RED BLOOD CELL COUNT(AUTO) 4.56 MIL/uL (4.00-5.50); RED CELL DISTRIBUTION WIDTH 18.2 % (11.0-15.5); WHITE BLOOD COUNT (AUTO) 10.3 K/uL (4.8-10.8)
[2021-04-30 14:39] LABS: CREATININE 6.8 mg/dL (0.5-1.5); POTASSIUM 4.3 mmol/L (3.5-5.1)
[2021-04-30 14:44] LABS: ALBUMIN 3.8 g/dL (3.5-5.0); BILIRUBIN,TOTAL 0.5 mg/dL (0.2-1.0); TOTAL PROTEIN, SERUM 8.5 g/dL (6.0-8.3)
[2021-04-30] MEDS ORDERED: ONDANSETRON 4MG INJ ONE (14:55)
[2021-04-30] MEDS ORDERED: 0.9% NACL 500ML IV.SOLN 500 ML IV ONE (15:28)
[2021-04-30] MEDS ORDERED: ONDANSETRON 4MG INJ IVP ONE (15:55)
[2021-04-30] MEDS ORDERED: MORPHINE 2 MG SYG IVP ONE (16:00)
[2021-04-30] MEDS ORDERED: DEXTROSE 50%-WATER 50 ML DISP.SYRIN IV PRN (16:30)
[2021-04-30] MEDS ORDERED: ONDANSETRON 4MG INJ IVP PRN (16:30)
[2021-04-30] MEDS ORDERED: HYDROMORPHONE 0.5 MG SYG (0.5MG/0.5ML) IVP PRN (16:30)
[2021-04-30] MEDS ORDERED: 0.9% NACL 500ML IV.SOLN 500 ML IV SCH (16:30)
[2021-04-30] MEDS ORDERED: GLUCAGON 1MG KIT 1 MG ML IM PRN (16:30)
[2021-04-30] MEDS: INSULIN R PO SS1 SQ SCH ×2 (16:30→21:00)
[2021-04-30] MEDS ORDERED: PROMETHAZINE HCL 25 MG/ML 1ML AMPULE IM ONE (16:30)
[2021-04-30] MEDS ORDERED: METOCLOPRAMIDE 10 MG/2 ML VIAL ONE (17:34)
[2021-04-30] MEDS: CEFTRIAXONE 1G VIAL IVP SCH (17:39)
[2021-04-30] MEDS ORDERED: METOCLOPRAMIDE 10 MG/2 ML VIAL IVP ONE (18:30)
[2021-04-30] MEDS: FAMOTIDINE 20MG VIAL IV SCH (22:12)
[2021-05-01 04:00] VITALS: BP 96/63
[2021-05-01 05:07] LABS: BASOPHILS % (AUTO) 0.7 % (0.0-5.0); HEMATOCRIT 39.4 % (36-48); LYMPHOCYTES % (AUTO) 9.4 % (21.0-51.0); MEAN CORPUSCULAR HEMOGLOBIN 27.8 pg (27.0-33.0); MEAN CORPUSCULAR HGB CONC 29.9 g/dL (32.0-36.0); MEAN CORPUSCULAR VOLUME 92.9 fL (79-99); MONOCYTES % (AUTO) 8.9 % (3.0-13.0); NEUTROPHILS % (AUTO) 79.6 % (40.0-77.0); PLATELET COUNT (AUTO) 123 K/uL (130-400); RED BLOOD CELL COUNT(AUTO) 4.24 MIL/uL (4.00-5.50); RED CELL DISTRIBUTION WIDTH 18.3 % (11.0-15.5); WHITE BLOOD COUNT (AUTO) 16.2 K/uL (4.8-10.8)
[2021-05-01 05:27] LABS: ALBUMIN 2.9 g/dL (3.5-5.0); BILIRUBIN,TOTAL 0.7 mg/dL (0.2-1.0); PHOSPHORUS 5.5 mg/dL (2.5-4.9); TOTAL PROTEIN, SERUM 7.4 g/dL (6.0-8.3)
[2021-05-01] MEDS: INSULIN R PO SS1 SQ SCH ×4 (06:45→21:14)
[2021-05-01 08:00] VITALS: BP 101/38
[2021-05-01 12:00] VITALS: BP 120/49
[2021-05-01 13:41] LABS: APPEARANCE,URINE CLOUDY (CLEAR); BILIRUBIN,URINE SMALL (NEGATIVE); COLOR,URINE ORANGE (YELLOW); GLUCOSE, URINE (UA) 500 mg/dL (NEGATIVE); KETONES,URINE NEGATIVE (NEGATIVE); LEUKOCYTE ESTERASE ,URINE TRACE (NEGATIVE); NITRATE,URINE POSITIVE (NEGATIVE); OCCULT BLOOD,URINE LARGE (NEGATIVE); PH,URINE 8.5 (5.0-8.0); PROTEIN,URINE 100 mg/dL (NEGATIVE); UROBILINOGEN,URINE 0.2 mg/dL (0.2-1.0)
[2021-05-01 14:19] LABS: BACTERIA,URINE Few /HPF (None Seen); MUCUS,URINE Few LPF (None Seen); RBC,URINE 26-50 /HPF (0-1); SQUAMOUS EPITHELIAL CELL,UR Few /HPF (0-2)
[2021-05-01 16:00] VITALS: BP 122/38
[2021-05-01] MEDS ORDERED: LOPERAMIDE HCL 2 MG CAP PO PRN (16:30)
[2021-05-01] MEDS: CEFTRIAXONE 1G VIAL IVP SCH (16:58)
[2021-05-01] MEDS ORDERED: MIDODRINE HCL 5 MG TABLET PO PRN (17:00)
[2021-05-01] MEDS ORDERED: CALCIUM CARB 500MG CHEW TAB PO PRN (17:30)
[2021-05-01 20:00] VITALS: BP 141/58
[2021-05-01] MEDS: CBD OIL PO SCH (21:00)
[2021-05-01] MEDS: FAMOTIDINE 20MG VIAL IV SCH (21:10)
[2021-05-01] MEDS: ROPINIROLE HCL 0.25 MG TABLET PO SCH (21:10)
[2021-05-02] VITALS (20 sets, daily range): BP systolic 96–158; BP diastolic 46–90
[2021-05-02 05:18] LABS: HEMATOCRIT 34.5 % (36-48); MEAN CORPUSCULAR HEMOGLOBIN 27.6 pg (27.0-33.0); MEAN CORPUSCULAR HGB CONC 30.1 g/dL (32.0-36.0); MEAN CORPUSCULAR VOLUME 91.5 fL (79-99); PLATELET COUNT (AUTO) 120 K/uL (130-400); RED BLOOD CELL COUNT(AUTO) 3.77 MIL/uL (4.00-5.50); RED CELL DISTRIBUTION WIDTH 17.9 % (11.0-15.5); WHITE BLOOD COUNT (AUTO) 12.8 K/uL (4.8-10.8)
[2021-05-02 05:35] LABS: ALBUMIN 2.8 g/dL (3.5-5.0); BILIRUBIN,TOTAL 0.3 mg/dL (0.2-1.0); CREATININE 7.2 mg/dL (0.5-1.5); PHOSPHORUS 7.3 mg/dL (2.5-4.9); POTASSIUM 4.2 mmol/L (3.5-5.1); TOTAL PROTEIN, SERUM 6.6 g/dL (6.0-8.3)
[2021-05-02] MEDS: INSULIN R PO SS1 SQ SCH ×4 (06:05→20:59)
[2021-05-02 06:08] LABS: BASOPHILS % (MANUAL) 4 % (0-2); EOSINOPHILS % (MANUAL) 3 % (1-6); LYMPHOCYTES % (MANUAL) 19 % (22-44); MONOCYTES % (MANUAL) 10 % (2-9); REACTIVE LYMPHOCYTES 2 % (0-0); SEGMENTED NEUTROPHILS % 62 % (40-70)
[2021-05-02 06:09] LABS: MAN.DIFF COMMENT-IMPRESSION MANUAL DIFFERENTIAL
[2021-05-02 06:11] LABS: PLATELET MORPHOLOGY COMMENT SLIGHTLY DECREASED
[2021-05-02] MEDS: VITAMIN E MIXED PO SCH (09:00)
[2021-05-02] MEDS: Vitamin B Complex/Vit C/Folic Acid PO SCH (09:07)
[2021-05-02] MEDS: ISOSORBIDE MONO 30MG SR TAB PO SCH (09:08)
[2021-05-02] MEDS: CEFTRIAXONE 1G VIAL IVP SCH (15:56)
[2021-05-02] MEDS: CBD OIL PO SCH (19:52)
[2021-05-02] MEDS: ROPINIROLE HCL 0.25 MG TABLET PO SCH (20:56)
[2021-05-02] MEDS: FAMOTIDINE 20MG VIAL IV SCH (20:56)
[2021-05-03] VITALS: BP 116/46
[2021-05-03 04:00] VITALS: BP 127/56
[2021-05-03 05:25] LABS: BASOPHILS % (AUTO) 1.2 % (0.0-5.0); EOSINOPHILS % (AUTO) 4.1 % (0.0-8.0); HEMATOCRIT 33.6 % (36-48); LYMPHOCYTES % (AUTO) 17.1 % (21.0-51.0); MEAN CORPUSCULAR HEMOGLOBIN 27.7 pg (27.0-33.0); MEAN CORPUSCULAR HGB CONC 30.1 g/dL (32.0-36.0); MEAN CORPUSCULAR VOLUME 92.1 fL (79-99); MONOCYTES % (AUTO) 10.5 % (3.0-13.0); NEUTROPHILS % (AUTO) 66.7 % (40.0-77.0); PLATELET COUNT (AUTO) 118 K/uL (130-400); RED BLOOD CELL COUNT(AUTO) 3.65 MIL/uL (4.00-5.50); RED CELL DISTRIBUTION WIDTH 17.7 % (11.0-15.5); WHITE BLOOD COUNT (AUTO) 10.5 K/uL (4.8-10.8)
[2021-05-03] MEDS: INSULIN R PO SS1 SQ SCH ×4 (06:25→20:27)
[2021-05-03 08:00] VITALS: BP 119/50
[2021-05-03] MEDS: Vitamin B Complex/Vit C/Folic Acid PO SCH (08:18)
[2021-05-03] MEDS: ISOSORBIDE MONO 30MG SR TAB PO SCH (08:18)
[2021-05-03] MEDS: VITAMIN E MIXED PO SCH (08:21)
[2021-05-03 11:56] VITALS: BP 138/58
[2021-05-03 16:00] VITALS: BP 133/61
[2021-05-03] MEDS: CEFTRIAXONE 1G VIAL IVP SCH (16:18)
[2021-05-03] MEDS ORDERED: ACETAMINOPHEN 325 MG TAB PO PRN (19:00)
[2021-05-03] MEDS: CBD OIL PO SCH (19:57)
[2021-05-03 20:00] VITALS: BP 129/55
[2021-05-03] MEDS: FAMOTIDINE 20MG VIAL IV SCH (20:13)
[2021-05-03] MEDS: ROPINIROLE HCL 0.25 MG TABLET PO SCH (20:13)
[2021-05-04] VITALS: BP 94/44
[2021-05-04 04:37] LABS: BASOPHILS % (AUTO) 1.1 % (0.0-5.0); EOSINOPHILS % (AUTO) 3.9 % (0.0-8.0); LYMPHOCYTES % (AUTO) 16.9 % (21.0-51.0); MEAN CORPUSCULAR HEMOGLOBIN 28.1 pg (27.0-33.0); MEAN CORPUSCULAR HGB CONC 30.6 g/dL (32.0-36.0); MEAN CORPUSCULAR VOLUME 91.7 fL (79-99); MONOCYTES % (AUTO) 10.3 % (3.0-13.0); NEUTROPHILS % (AUTO) 67.2 % (40.0-77.0); PLATELET COUNT (AUTO) 116 K/uL (130-400); RED BLOOD CELL COUNT(AUTO) 3.49 MIL/uL (4.00-5.50); RED CELL DISTRIBUTION WIDTH 17.5 % (11.0-15.5); WHITE BLOOD COUNT (AUTO) 10.3 K/uL (4.8-10.8)
[2021-05-04 04:54] LABS: CREATININE 6.7 mg/dL (0.5-1.5); PHOSPHORUS 6.3 mg/dL (2.5-4.9); POTASSIUM 4.2 mmol/L (3.5-5.1)
[2021-05-04 05:50] VITALS: BP 137/63
[2021-05-04] MEDS: INSULIN R PO SS1 SQ SCH ×2 (05:53→11:30)
[2021-05-04 08:00] VITALS: BP 145/55
[2021-05-04] MEDS: ISOSORBIDE MONO 30MG SR TAB PO SCH (08:19)
[2021-05-04] MEDS: Vitamin B Complex/Vit C/Folic Acid PO SCH (08:19)
[2021-05-04] MEDS: VITAMIN E MIXED PO SCH (09:00)
[2021-05-04 12:00] VITALS: BP 142/49
[2021-05-04] MEDS ORDERED: CEPH500B PO (13:37)
[2021-05-08] MEDS ORDERED: ERGOCALCIFEROL (VITAMIN D2) 50,000 UNIT CAPSULE PO SCH (09:00)
== END 2021-05-04 15:15 | disposition home or self-care (01) | DRG 690 ==
LOC: EDH 14:01 → EDHIP 15:45 → OBSVTOIN 15:45 → 3DH 05-01 03:58 → UNDODISIN 05-04 15:15
PROVIDERS: ADMIT Internal Medicine Nephrology; ATTEND Internal Medicine Nephrology
PROC: 5A1D70Z Performance of Urinary Filtration, Intermittent, Less than 6 Hours Per Day (ICD-10-PCS; principal; 2021-04-30)
PROC: 5A1D70Z Performance of Urinary Filtration, Intermittent, Less than 6 Hours Per Day (ICD-10-PCS; 2021-05-02)
DX: N13.6 Pyonephrosis (principal); I12.0 Hypertensive chronic kidney disease with stage 5 chronic kidney disease or end stage renal disease; N18.6 End stage renal disease; E11.22 Type 2 diabetes mellitus with diabetic chronic kidney disease; G25.81 Restless legs syndrome; I25.10 Atherosclerotic heart disease of native coronary artery without angina pectoris; D64.9 Anemia, unspecified; I48.91 Unspecified atrial fibrillation; Z99.2 Dependence on renal dialysis; Z91.11 Patient's noncompliance with dietary regimen; Z79.84 Long term (current) use of oral hypoglycemic drugs; Z90.49 Acquired absence of other specified parts of digestive tract; Z90.710 Acquired absence of both cervix and uterus
CPT/HCPCS: 36415; 74176; 80048; 80053; 81001; 82150; 82948; 83690; 83735; 84100; 84132; 85025; 87040; 87088; 90935; G0378; J0696; J1170; J2405; J2765; J3490; J7040

== ENCOUNTER 2023-01-23 16:25 | Emergency (ER) | payer OTHER ==
[~2023-01-23] VITALS: Ht 172.7 cm; Wt 65.8 kg
[~2023-01-23 16:25] MED LIST changes: -CALC667C10 PO; -CALC750T4 PO; -CBD OIL PO; +ELIQUIS PO; -ERGO500014 PO; -FOLI1TAB85 PO; -ISOS30TA92 PO; -LOPE2 PO; -MIDO10TA PO; +ROPI0.5T37 PO; -ROPI0.5T7 PO; +SITA25TA5 PO; -VITA-164 PO
[2023-01-23 17:57] LABS: BASOPHILS % (AUTO) 0.5 % (0.0-5.0); EOSINOPHILS % (AUTO) 0.3 % (0.0-8.0); HEMATOCRIT 31.6 % (36-48); LYMPHOCYTES % (AUTO) 12.1 % (21.0-51.0); MEAN CORPUSCULAR HEMOGLOBIN 29.3 pg (27.0-33.0); MEAN CORPUSCULAR HGB CONC 30.4 g/dL (32.0-36.0); MEAN CORPUSCULAR VOLUME 96.3 fL (79-99); MONOCYTES % (AUTO) 9.9 % (3.0-13.0); NEUTROPHILS % (AUTO) 76.7 % (40.0-77.0); PLATELET COUNT (AUTO) 71 K/uL (130-400); RED BLOOD CELL COUNT(AUTO) 3.28 MIL/uL (4.00-5.50); RED CELL DISTRIBUTION WIDTH 19.3 % (11.0-15.5); WHITE BLOOD COUNT (AUTO) 13.3 K/uL (4.8-10.8)
[2023-01-23 18:15] LABS: CREATININE 4.2 mg/dL (0.5-1.5); POTASSIUM 3.4 mmol/L (3.5-5.1)
[2023-01-23 18:20] LABS: ALBUMIN 1.6 g/dL (3.5-5.0); TOTAL PROTEIN, SERUM 6.5 g/dL (6.0-8.3)
[2023-01-23] MEDS ORDERED: LACT10SO9 PO (22:26)
[2023-01-24 01:33] VITALS: BP 97/50; PULSE 89; RESP 18; O2SAT 95
== END 2023-01-24 01:37 | disposition home or self-care (01) ==
LOC: EDH 16:25
DX: K59.00 Constipation, unspecified (principal); Z88.5 Allergy status to narcotic agent; Z88.1 Allergy status to other antibiotic agents
CPT/HCPCS: 36415; 74176; 80053; 85025